=== PATIENT | female | born 1955 | race African-American/Black ===

== ENCOUNTER 2017-09-22 20:37 | Emergency (ER) | payer OTHER ==
--- NOTE | 2017-09-22 21:17 | PDOC ---
Rapid Medical Evaluation Chief Complaint: Cold Symptoms Time Seen by Provider: 09/22/17 21:09 Medical Evaluation: Allergies Allergy/AdvReac Type Severity Reaction Status Date / Time No Known Drug Allergies Allergy Verified 04/16/15 07:58 09/22/17 21:10 have performed a brief in-person evaluation of this patient. The patient presents with a chief complaint of: + cough , fevers, chills, cough non productive.started yesterday . diagnosed with Influenza this week Pertinent physical exam findings: ill apperaing, glassy eyed, congested. Tight insp BS.. I have ordered the following: Tylenol 975mg PO given , Duoneb Treatment The patient will proceed to the ED for further evaluation. 09/22/17 21:17 Discharge Disposition - Referrals Referrals: Kisha Rahman [Primary Care Provider] - - Patient Instructions - Post Discharge Activity
[2017-09-22] MEDS ORDERED: ALBUTEROL SO4 2.5/IPRATROPIUM 0.5 INH SOL 3 ML VIAL.NEB. NEB ONE ×3 (21:27→22:34)
[2017-09-22] MEDS ORDERED: ACETAMINOPHEN 500 MG TABLET (FP) PO ONE (21:28)
[2017-09-22 21:30] VITALS: BP 151/98; PULSE 84; TEMP 99.9; BMI 34.5
--- NOTE | 2017-09-22 22:41 | PDOC ---
History of Present Illness - General Chief Complaint: Cold Symptoms Stated Complaint: R/O FLU Time Seen by Provider: 09/22/17 21:09 History Source: Patient Exam Limitations: No Limitations Past History - Past Medical History Allergies/Adverse Reactions: Allergies Allergy/AdvReac Type Severity Reaction Status Date / Time No Known Drug Allergies Allergy Verified 09/22/17 21:11 Home Medications: Ambulatory Orders Aspirin [ASA -] 81 mg PO DAILY 04/13/15 Tramadol HCl [Ultram] 50 mg PO Q6H PRN 04/13/15 Losartan/Hydrochlorothiazide [Losartan-Hctz 50-12.5 mg Tab] 1 each PO DAILY Albuterol Sulfate Inhaler - [Ventolin HFA Inhaler -] 1 - 2 inh PO Q4H #1 inhaler 09/22/17 Ibuprofen 800 mg PO TID #30 tablet 09/22/17 Oseltamivir Phosphate [Tamiflu] 75 mg PO BID #10 capsule 09/22/17 Anemia: No Asthma: No Cancer: No Cardiac Disorders: No CVA: No COPD: No CHF: No Dementia: No Diabetes: No GI Disorders: No Disorders: No HTN: Yes Hypercholesterolemia: No Liver Disease: No Seizures: No Thyroid Disease: No - Surgical History Abdominal Surgery: No Appendectomy: No Cardiac Surgery: No (01/2015 CARD CATH - NEGATIVE) Cholecystectomy: No Lung Surgery: No Neurologic Surgery: No Orthopedic Surgery: Yes (R TOTAL KNEE REPLACEMENT 01/2015) - Suicide/Smoking/Psychosocial Hx Smoking Status: No Smoking History: Never smoked Have you smoked in the past 12 months: No Number of Cigarettes Smoked Daily: 0 Hx Alcohol Use: No Drug/Substance Use Hx: No Substance Use Type: Alcohol Hx Substance Use Treatment: No *Physical Exam - Vital Signs Last Vital Signs Temp Pulse Resp BP Pulse Ox 99.9 F H 84 20 151/98 97 09/22/17 21:11 09/22/17 21:11 09/22/17 21:11 09/22/17 21:11 09/22/17 21:11 ED Treatment Course - Medications Given in the ED: ED Medications Discontinued Medications Generic Name Dose Route Start Last Admin Trade Name Freq PRN Reason Stop Dose Admin Acetaminophen 1,000 mg 09/22/17 21:28 09/22/17 21:29 Tylenol - PO 09/22/17 21:29 1,000 mg ONCE ONE Administration Albuterol/Ipratropium 1 amp 09/22/17 21:27 09/22/17 21:29 Duoneb - NEB 09/22/17 21:28 1 amp ONCE ONE Administration *DC/Admit/Observation/Transfer Diagnosis at time of Disposition: Influenza - Discharge Dispostion Disposition: HOME Condition at time of disposition: Fair Admit: No - Prescriptions Prescriptions: Albuterol Sulfate Inhaler - [Ventolin HFA Inhaler -] 1 - 2 inh PO Q4H #1 inhaler Ibuprofen 800 mg PO TID #30 tablet Oseltamivir Phosphate [Tamiflu] 75 mg PO BID #10 capsule - Referrals Referrals: Kisha Rahman [Primary Care Provider] - - Patient Instructions Printed Discharge Instructions: DI for Influenza -- Adult Additional Instructions: You have the flu. Please take tamiflu twice a day for 5 days to help with your symptoms. The tamiflu will help to reduce symptoms by one day. Please take Motrin 800mg three times a day to help with fevers and body aches. You may use the albuterol inhaler every 4 hours to help with your breathing. Use Corticin HBP for cough syrup. This is found over the counter. Drink plenty of fluids and get plenty of rest. Follow up with your primary care doctor next week. Return to the ED if you have worsening pain, shortness of breath, difficulty breathing or any changes in your symptoms. - Post Discharge Activity Forms/Work/School Notes: Back to Work
== END 2017-09-22 23:02 | disposition home or self-care (01) ==
LOC: JER 20:37 → JERFT 20:37
DX: J11.1 Influenza due to unidentified influenza virus with other respiratory manifestations (principal)
CPT/HCPCS: 99281-25

== ENCOUNTER 2018-05-27 17:15 | Emergency (ER) | payer OTHER ==
[2018-05-27 17:34] VITALS: BP 146/99; PULSE 65; TEMP 98; BMI 38.7
[2018-05-27] MEDS ORDERED: KETOROLAC TROMETHAMINE 60 MG/2 ML VIAL IM ONE (17:56)
[2018-05-27] MEDS ORDERED: KETOROLAC TROMETHAMINE 60 MG/2 ML VIAL ONE (17:59)
--- NOTE | 2018-05-27 18:06 | PDOC ---
History of Present Illness - General Chief Complaint: Pain Stated Complaint: HIP AND LEG PAIN Time Seen by Provider: 05/27/18 17:42 History Source: Patient Exam Limitations: No Limitations - History of Present Illness Initial Comments: 05/27/18 18:01 63 yr female with c/o low back pain radiates to her left buttock and down her leg. Pt has had low back pain for the past 3-4 days today worse and down leg. 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 neg bowel or bladder dysfunction. Past History - Past Medical History Allergies/Adverse Reactions: Allergies Allergy/AdvReac Type Severity Reaction Status Date / Time No Known Drug Allergies Allergy Verified 05/27/18 17:34 Home Medications: Ambulatory Orders Losartan/Hydrochlorothiazide [Losartan-Hctz 50-12.5 mg Tab] 1 each PO DAILY Albuterol Sulfate Inhaler - [Ventolin HFA Inhaler -] 1 - 2 inh PO Q4H #1 inhaler 09/22/17 Ibuprofen 800 mg PO TID #30 tablet 09/22/17 Cyclobenzaprine HCl [Flexeril -] 10 mg PO TID #21 tablet 05/27/18 Methylprednisolone [Medrol Dose Abiel] 4 mg PO ASDIR #21 tablet 05/27/18 Anemia: No Asthma: No Cancer: No Cardiac Disorders: No CVA: No COPD: No CHF: No Dementia: No Diabetes: No GI Disorders: No Disorders: No HTN: Yes Hypercholesterolemia: No Liver Disease: No Seizures: No Thyroid Disease: No - Surgical History Abdominal Surgery: No Appendectomy: No Cardiac Surgery: No (01/2015 CARD CATH - NEGATIVE) Cholecystectomy: No Lung Surgery: No Neurologic Surgery: No Orthopedic Surgery: Yes (R TOTAL KNEE REPLACEMENT 01/2015) - Suicide/Smoking/Psychosocial Hx Smoking Status: No Smoking History: Never smoked Have you smoked in the past 12 months: No Number of Cigarettes Smoked Daily: 0 Hx Alcohol Use: No Drug/Substance Use Hx: No Substance Use Type: Alcohol Hx Substance Use Treatment: No Review of Systems - Review of Systems Able to Perform ROS?: Yes Is the patient limited Martiniquais proficient: No Musculoskeletal: Yes: Symptoms Reported *Physical Exam - Vital Signs Last Vital Signs Temp Pulse Resp BP Pulse Ox 98 F 65 18 146/99 99 05/27/18 17:29 05/27/18 17:29 05/27/18 17:29 05/27/18 17:29 05/27/18 17:29 - Physical Exam General Appearance: Yes: Nourished, Appropriately Dressed, Obese HEENT: positive: EOMI, BABAR Neck: positive: Supple. negative: Tender Respiratory/Chest: positive: Lungs Clear, Normal Breath Sounds Cardiovascular: positive: Regular Rhythm, Regular Rate Musculoskeletal: positive: Normal Inspection, Other (lumbar spine soft tissue paraspinal ttp ). negative: Vertebral Tenderness Extremity: positive: Normal Capillary Refill, Normal Inspection, Other (pos SLR left leg at 30 degrees) Medical Decision Making - Medical Decision Making 05/27/18 18:06 cc: low back pain with sciatica neg saddle anesthesia neg bowel or bladder dysfunction will give toradol now dc with medrol dose pack , flexeril pt has been taking NSAIDS at home with minimal relief pt ambulating with limp *DC/Admit/Observation/Transfer Diagnosis at time of Disposition: Sciatica of left side - Discharge Dispostion Disposition: HOME Condition at time of disposition: Good - Prescriptions Prescriptions: Cyclobenzaprine HCl [Flexeril -] 10 mg PO TID #21 tablet Methylprednisolone [Medrol Dose Abiel] 4 mg PO ASDIR #21 tablet - Referrals Referrals: Kisha Rahman [Primary Care Provider] - Noé Sue MD [Staff Physician] - - Patient Instructions Additional Instructions: take the flexeril for muscle spasm as directed take the medrol dose pack as directed ice to low back every 4hrs for 20 minutes then apply a heating pad to the lower back avoid heavy lifting or bending follow with the neurosurgeon for your back pain or your primary care doctor call tomorrow to set up appointment return to ER for any worsening symptoms - Post Discharge Activity Forms/Work/School Notes: Back to Work
== END 2018-05-27 18:48 | disposition home or self-care (01) ==
LOC: JERFT 17:15
PROC: 3E0233Z Introduction of Anti-inflammatory into Muscle, Percutaneous Approach (ICD-10-PCS; principal; 2018-05-27)
DX: M54.42 Lumbago with sciatica, left side (principal); Z98.61 Coronary angioplasty status
CPT/HCPCS: 99281-25

== ENCOUNTER 2018-06-02 21:39 | Emergency (ER) | payer OTHER ==
[2018-06-02 21:46] VITALS: BP 153/69; PULSE 62; TEMP 97.9; BMI 38.7
[2018-06-02] MEDS ORDERED: ACETAMINOPHEN 500 MG TABLET (FP) PO ONE (22:12)
[2018-06-02] MEDS ORDERED: ACETAMINOPHEN 500 MG TABLET (FP) ONE (22:13)
--- NOTE | 2018-06-02 22:13 | PDOC ---
History of Present Illness - General Chief Complaint: Pain, Acute Stated Complaint: HIP AND ANKLE PAIN Time Seen by Provider: 06/02/18 22:04 - History of Present Illness Initial Comments: 63-year-old female with a past medical history significant for hypertension. She was seen last week in the emergency room given a prescription for Medrol Dosepak, ibuprofen, and Flexeril. She's still continues to have radicular symptoms down the left leg. No loss of bowel bladder function or saddle paresthesia. No other associated symptoms. 06/02/18 22:09 Past History - Past Medical History Allergies/Adverse Reactions: Allergies Allergy/AdvReac Type Severity Reaction Status Date / Time No Known Drug Allergies Allergy Verified 06/02/18 21:46 Home Medications: Ambulatory Orders Losartan/Hydrochlorothiazide [Losartan-Hctz 50-12.5 mg Tab] 1 each PO DAILY Albuterol Sulfate Inhaler - [Ventolin HFA Inhaler -] 1 - 2 inh PO Q4H #1 inhaler 09/22/17 Ibuprofen 800 mg PO TID #30 tablet 09/22/17 Cyclobenzaprine HCl [Flexeril -] 10 mg PO TID #21 tablet 05/27/18 Cyclobenzaprine HCl [Flexeril -] 10 mg PO TID PRN #21 tablet 05/27/18 Methylprednisolone [Medrol Dose Abiel] 4 mg PO ASDIR #21 tablet 05/27/18 Methylprednisolone [Medrol Dose Abiel] 4 mg PO ASDIR #21 tablet 05/27/18 Anemia: No Asthma: No Cancer: No Cardiac Disorders: No CVA: No COPD: No CHF: No Dementia: No Diabetes: No GI Disorders: No Disorders: No HTN: Yes Hypercholesterolemia: No Liver Disease: No Seizures: No Thyroid Disease: No - Surgical History Abdominal Surgery: No Appendectomy: No Cardiac Surgery: No (01/2015 CARD CATH - NEGATIVE) Cholecystectomy: No Lung Surgery: No Neurologic Surgery: No Orthopedic Surgery: Yes (R TOTAL KNEE REPLACEMENT 01/2015) - Suicide/Smoking/Psychosocial Hx Smoking Status: No Smoking History: Never smoked Have you smoked in the past 12 months: No Number of Cigarettes Smoked Daily: 0 Hx Alcohol Use: No Drug/Substance Use Hx: No Substance Use Type: Alcohol Hx Substance Use Treatment: No Review of Systems - Review of Systems Musculoskeletal: Yes: See HPI, Back Pain All Other Systems: Reviewed and Negative *Physical Exam - Vital Signs Last Vital Signs Temp Pulse Resp BP Pulse Ox 97.9 F 62 18 153/69 98 06/02/18 21:43 06/02/18 21:43 06/02/18 21:43 06/02/18 21:43 06/02/18 21:43 - Physical Exam Comments: Lumbar spine skin color and temperature are normal. Range of motion is slightly decreased. There is moderate paralumbar musculature spasm greater on the left in the right with associated tenderness. 5 out of 5 strength in bilateral lower extremities thighs and calves are soft and nontender straight leg raise test is negative on the right positive on the left. She's neurovascular intact. 06/02/18 22:09 Medical Decision Making - Medical Decision Making 63-year-old female with hypertension on angiotensin receptor beni, already on a Medrol Dosepak in addition to a prescription strength ibuprofen. As well as Flexeril. She does discontinue the Flexeril she felt it did not help her. I have advised her to continue the Flexeril and just take Tylenol for pain. Ibuprofen will increase her pressure and put strain on her kidneys. She will finished a Medrol Dosepak as directed. I will refer her to spine surgery 06/02/18 22:10 *DC/Admit/Observation/Transfer Diagnosis at time of Disposition: Lumbar radiculopathy - Discharge Dispostion Disposition: HOME Condition at time of disposition: Stable Decision to Admit order: No - Referrals Referrals: Kisha Rahman [Primary Care Provider] - Charanjit Dunbar MD [Staff Physician] - - Patient Instructions Printed Discharge Instructions: Lumbar Radiculopathy, DI for Lumbar Radiculopathy Additional Instructions: Return to the emergency room should symptoms worsen or go unresolved. Please discontinue the use of the ibuprofen. Take Tylenol for pain as directed and continue the Flexeril. The muscle relaxants will help alleviate your pain. Follow-up with spine surgery in 1-2 days for further evaluation and treatment options. - Post Discharge Activity
== END 2018-06-02 22:15 | disposition home or self-care (01) ==
LOC: JER 21:39 → JERFT 21:39
DX: M54.16 Radiculopathy, lumbar region (principal); I25.10 Atherosclerotic heart disease of native coronary artery without angina pectoris; I10 Essential (primary) hypertension; Z98.61 Coronary angioplasty status; Z96.651 Presence of right artificial knee joint
CPT/HCPCS: 99281-25

== ENCOUNTER 2018-10-29 20:45 | Observation (INO) | payer OTHER ==
[2018-10-29 21:16] VITALS: BMI 39.0
--- NOTE | 2018-10-29 21:18 | PDOC ---
Rapid Medical Evaluation Chief Complaint: Pain Time Seen by Provider: 10/29/18 21:14 Medical Evaluation: Allergies Allergy/AdvReac Type Severity Reaction Status Date / Time No Known Drug Allergies Allergy Verified 10/29/18 21:09 10/29/18 21:14 I have performed a brief in-person evaluation of this patient. The patient presents with a chief complaint of: chest pain Pertinent physical exam findings: Lungs CTAB. RRR. o m/r/g. I have ordered the following: cardiac w/u The patient will proceed to the ED for further evaluation. Discharge Disposition - Diagnosis Chest pain - Referrals - Patient Instructions - Post Discharge Activity
[2018-10-29 21:50] LABS: BASO % 0.8 % (0-2.0); EOS % 2.9 % (0-4.5); HEMATOCRIT 39.5 % (32.4-45.2); HEMOGLOBIN 13.7 GM/dL (10.7-15.3); LYMPH % 35.5 % (8-40); MCH 33.2 pg (25.7-33.7); MCHC 34.6 g/dl (32.0-36.0); NEUT % 51.8 % (42.8-82.8); PLATELET COUNT 222 K/MM3 (134-434); RBC 4.12 M/mm3 (3.60-5.2); RDW 13.1 % (11.6-15.6); WHITE BLOOD COUNT 5.2 K/mm3 (4.0-10.0)
--- NOTE | 2018-10-29 21:53 | PDOC ---
*Physical Exam - Vital Signs Last Vital Signs Temp Pulse Resp BP Pulse Ox 98.3 F 63 18 134/77 99 10/29/18 21:10 10/29/18 21:10 10/29/18 21:10 10/29/18 21:10 10/29/18 21:10 ED Treatment Course - LABORATORY CBC & Chemistry Diagram: 10/29/18 21:33 10/29/18 21:41 Medical Decision Making - Medical Decision Making 10/29/18 21:53 Patient seen by the advanced practice provider under my direct supervision. Ancillary testing reviewed as necessary. I agree with plan as outlined by the advanced practice provider. *DC/Admit/Observation/Transfer Diagnosis at time of Disposition: Chest pain - Referrals - Patient Instructions - Post Discharge Activity
[2018-10-29 21:58] LABS: URINE APPEARANCE SLCLOUDY; URINE BILIRUBIN NEGATIVE (<2.0 mg/dL); URINE COLOR YELLOW; URINE GLUCOSE (UA) NEGATIVE (NEGATIVE); URINE KETONE NEGATIVE (NEGATIVE); URINE LEUK ESTERASE TRACE (NEGATIVE); URINE NITRITE NEGATIVE (NEGATIVE); URINE PROTEIN NEGATIVE (NEGATIVE); URINE UROBILINOGEN NEGATIVE mg/dL (0.2-1.0)
[2018-10-29 22:00] LABS: EPI CELLS RARE /HPF (FEW); URINE HYALINE CAST 1 /lpf; URINE MUCUS RARE
[2018-10-29 22:02] LABS: INR 0.98 (0.83-1.09); PROTHROMBIN TIME (PATIENT) 11.6 SEC (9.7-13.0)
[2018-10-29 22:31] LABS: ALBUMIN 3.8 g/dl (3.4-5.0); ALK PHOS 86 U/L (45-117); ANION GAP 7 MMOL/L (8-16); BILIRUBIN,TOTAL 0.3 mg/dL (0.2-1); BLOOD UREA NITROGEN 14 mg/dL (7-18); CALCIUM 8.9 mg/dL (8.5-10.1); CHLORIDE 105 mmol/L (98-107); CO2 27 mmol/L (21-32); CREATININE 0.9 mg/dL (0.55-1.3); GLUCOSE,RANDOM 87 mg/dL (74-106); MAGNESIUM 2.5 mg/dL (1.8-2.4); POTASSIUM 4.5 mmol/L (3.5-5.1); SGOT/AST 23 U/L (15-37); SGPT/ALT 23 U/L (13-61); SODIUM 140 mmol/L (136-145); TOT PROT 7.6 g/dl (6.4-8.2)
--- NOTE | 2018-10-29 22:49 | PDOC ---
History of Present Illness - General Chief Complaint: Pain Stated Complaint: CHEST PAIN Time Seen by Provider: 10/29/18 21:14 History Source: Patient Exam Limitations: No Limitations Past History - Past Medical History Allergies/Adverse Reactions: Allergies Allergy/AdvReac Type Severity Reaction Status Date / Time No Known Drug Allergies Allergy Verified 10/29/18 21:09 Home Medications: Ambulatory Orders Losartan/Hydrochlorothiazide [Losartan-Hctz 50-12.5 mg Tab] 1 each PO DAILY Albuterol Sulfate Inhaler - [Ventolin HFA Inhaler -] 1 - 2 inh PO Q4H #1 inhaler 09/22/17 Ibuprofen 800 mg PO TID #30 tablet 09/22/17 Cyclobenzaprine HCl [Flexeril -] 10 mg PO TID #21 tablet 05/27/18 Cyclobenzaprine HCl [Flexeril -] 10 mg PO TID PRN #21 tablet 05/27/18 Methylprednisolone [Medrol Dose Abiel] 4 mg PO ASDIR #21 tablet 05/27/18 Methylprednisolone [Medrol Dose Abiel] 4 mg PO ASDIR #21 tablet 05/27/18 Anemia: No Asthma: No Cancer: No Cardiac Disorders: No CVA: No COPD: No CHF: No Dementia: No Diabetes: No GI Disorders: No Disorders: No HTN: Yes (Borderline) Hypercholesterolemia: No Liver Disease: No Seizures: No Thyroid Disease: No - Surgical History Abdominal Surgery: No Appendectomy: No Cardiac Surgery: No (01/2015 CARD CATH - NEGATIVE) Cholecystectomy: No Lung Surgery: No Neurologic Surgery: No Orthopedic Surgery: Yes (R TOTAL KNEE REPLACEMENT 01/2015) - Suicide/Smoking/Psychosocial Hx Smoking Status: No Smoking History: Never smoked Have you smoked in the past 12 months: No Number of Cigarettes Smoked Daily: 0 Information on smoking cessation initiated: No Hx Alcohol Use: No Drug/Substance Use Hx: No Substance Use Type: Alcohol Hx Substance Use Treatment: No Cardiac Specific PMH - Complaint Specific PMHX Pacemaker: No *Physical Exam - Vital Signs Last Vital Signs Temp Pulse Resp BP Pulse Ox 98.3 F 63 18 134/77 99 10/29/18 21:10 10/29/18 21:10 10/29/18 21:10 10/29/18 21:10 10/29/18 21:10 - Physical Exam General Appearance: No: Apparent Distress Respiratory/Chest: positive: Lungs Clear, Normal Breath Sounds. negative: Chest Tender, Respiratory Distress Cardiovascular: positive: Regular Rhythm, Regular Rate, S1, S2. negative: Murmur Gastrointestinal/Abdominal: positive: Normal Bowel Sounds, Soft. negative: Tender, Distended, Guarding, Rebound Musculoskeletal: negative: CVA Tenderness, Muscle Spasm, Vertebral Tenderness Extremity: positive: Normal Inspection. negative: Pedal Edema, Calf Tenderness Integumentary: positive: Normal Color Neurologic: positive: Alert, Normal Mood/Affect Heart Score/ECG Review - History History: Slightly suspicious - Electrocardiogram EKG: Non specific repolarization disturbance - Age Age: 45-65 - Risk Factors Risk Factors Heart Score: Yes Hx Hypertension, Yes Hx Obesity Based on the list above the patient has:: 1-2 risk factors - Troponin Troponin: </= normal limit - Score Heart Score - Total: 3 Moderate Sedation - Procedure Monitoring Vital Signs: Procedure Monitoring Vital Signs Temperature 98.3 F 10/29/18 21:10 Pulse Rate 63 10/29/18 21:10 Respiratory Rate 18 10/29/18 21:10 Blood Pressure 134/77 10/29/18 21:10 O2 Sat by Pulse Oximetry (%) 99 10/29/18 21:10 ED Treatment Course - LABORATORY CBC & Chemistry Diagram: 10/29/18 21:33 10/29/18 21:41 - ADDITIONAL ORDERS Additional order review: Laboratory Results 10/29/18 10/29/18 10/29/18 21:41 21:40 21:33 PT with INR 11.60 INR 0.98 Sodium 140 Potassium 4.5 Chloride 105 Carbon Dioxide 27 Anion Gap 7 L BUN 14 Creatinine 0.9 Creat Clearance w eGFR > 60 Random Glucose 87 Calcium 8.9 Magnesium 2.5 H Total Bilirubin 0.3 AST 23 ALT 23 Alkaline Phosphatase 86 Creatine Kinase 206 H Creatine Kinase Index 0.5 CK-MB (CK-2) 1.2 Troponin I < 0.02 Total Protein 7.6 Albumin 3.8 Urine Color Yellow Urine Appearance Slcloudy Urine pH 5.0 Ur Specific [place] 1.024 Urine Protein Negative Urine Glucose (UA) Negative Urine Ketones Negative Urine Blood Negative Urine Nitrite Negative Urine Bilirubin Negative Urine Urobilinogen Negative Ur Leukocyte Esterase Trace Urine WBC (Auto) 1 Urine RBC (Auto) 1 Ur Epithelial Cells Rare Hyaline Casts 1 Urine Mucus Rare 10/29/18 21:33 RBC 4.12 MCV 96.0 MCHC 34.6 RDW 13.1 D MPV 9.0 Neutrophils % 51.8 Lymphocytes % 35.5 Monocytes % 9.0 Eosinophils % 2.9 Basophils % 0.8 Medical Decision Making - Medical Decision Making 63 y/o F with hx of HTN presents with sharp, nonradiating substernal CP that started today at 8 PM while she was sitting in car. Pain lasted a few minutes and then resolved. Denies having this type of pain before. Also mentions having nonradiating LBP x 2 days. 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 Mentions increased urinary frequency x 1 week. Denies fever, cough, sob, palpitations, dizziness, abd pain, n/v, dysuria , hematuria. Denies smoking or drug use. Believes her mother may have had CAD with stent placement in her 70s. Plan: r/o ACS Initial EKG shows NSR at 62 bpm with nonspecific T wave flattening (seen in prior EKG as well) Labs sent and pending CXR pending 10/29/18 22:46 CXR wet read neg Trop neg UA neg Patient heart score of 3 Discussed case w/ attending - recommends ED obs admission to r/o ACS 10/30/18 00:13 *DC/Admit/Observation/Transfer Diagnosis at time of Disposition: Chest pain Qualifiers: Chest pain type: other chest pain Qualified Code(s): R07.89 - Other chest pain ; R07.8 - Other chest pain - Discharge Dispostion Condition at time of disposition: Stable Decision to Admit order: Yes - Referrals Referrals: Kisha Rahman [Primary Care Provider] - - Patient Instructions - Post Discharge Activity
[2018-10-30] MEDS ORDERED: ASPIRIN 325 MG TABLET PO ONE (00:14)
--- NOTE | 2018-10-30 00:57 | HP ---
CHIEF COMPLAINT: chest pain PCP: Dr. Kisha Rahman HISTORY OF PRESENT ILLNESS: Patient is a 63 yo obese, F, with a PMHx of HTN, presenting today with sharp, 9/ 10, non-radiating, substernal chest pain that lasted a few minutes. She said she was driving in her car when the pain suddenly occurred. She said this never happened to her in the past. When asked about SOB, she said she could walk 3 blocks before she gets tired and SOB, which she relates to her obesity and weight gain. She denies other symptoms. She was here in 2011 and had a stress test and an echo which were unremarkable. She does not follow a director toxicology at this time. She also mentions having a cold about a month ago which has resolved. She denies SOB, nausea, vomiting, dizziness, LOC, urinary symptoms, chills, fevers, cough. ER course was notable for: (1) EKG NSR, no changes from previous. (2) ASA 325 Recent Travel: denies PAST MEDICAL HISTORY: HTN Social History: Smoking: denies Alcohol: occasionally Drugs: denies Family History: Allergies No Known Drug Allergies Allergy (Verified 10/29/18 21:09) HOME MEDICATIONS: Home Medications Medication Instructions Recorded Losartan/Hydrochlorothiazide 1 each PO DAILY 04/16/15 [Losartan-Hctz 50-12.5 mg Tab] Albuterol Sulfate Inhaler - 1 - 2 inh PO Q4H #1 inhaler 09/22/17 [Ventolin HFA Inhaler -] Ibuprofen 800 mg PO TID #30 tablet 09/22/17 Cyclobenzaprine HCl [Flexeril -] 10 mg PO TID #21 tablet 05/27/18 Cyclobenzaprine HCl [Flexeril -] 10 mg PO TID PRN #21 tablet 05/27/18 Methylprednisolone [Medrol Dose 4 mg PO ASDIR #21 tablet 05/27/18 Abiel] Methylprednisolone [Medrol Dose 4 mg PO ASDIR #21 tablet 05/27/18 Abiel] REVIEW OF SYSTEMS CONSTITUTIONAL: Absent: fever, chills, diaphoresis, generalized weakness, malaise, loss of appetite, weight change HEENT: Absent: rhinorrhea, nasal congestion, throat pain, throat swelling, difficulty swallowing, mouth swelling, ear pain, eye pain, visual changes CARDIOVASCULAR: Absent: chest pain, syncope, palpitations, irregular heart rate, lightheadedness , peripheral edema RESPIRATORY: Absent: cough, shortness of breath, dyspnea with exertion, orthopnea, wheezing, stridor, hemoptysis GASTROINTESTINAL: Absent: abdominal pain, abdominal distension, nausea, vomiting, diarrhea, constipation, melena, hematochezia GENITOURINARY: Absent: dysuria, frequency, urgency, hesitancy, hematuria, flank pain, genital pain MUSCULOSKELETAL: back pain from sciatica Absent: myalgia, arthralgia, joint swelling, neck pain SKIN: Absent: rash, itching, pallor HEMATOLOGIC/IMMUNOLOGIC: Absent: easy bleeding, easy bruising, lymphadenopathy, frequent infections ENDOCRINE: Absent: unexplained weight gain, unexplained weight loss, heat intolerance, cold intolerance NEUROLOGIC: Absent: headache, focal weakness or paresthesias, dizziness, unsteady gait, seizure, mental status changes, bladder or bowel incontinence PSYCHIATRIC: Absent: anxiety, depression, suicidal or homicidal ideation, hallucinations. PHYSICAL EXAMINATION Vital Signs - 24 hr 10/29/18 21:10 Temperature 98.3 F Pulse Rate 63 Respiratory 18 Rate Blood Pressure 134/77 O2 Sat by Pulse 99 Oximetry (%) GENERAL: obese, Awake, alert, and fully oriented, in no acute distress. HEAD: Normal with no signs of trauma. EYES: Pupils equal, round and reactive to light, extraocular movements intact, sclera anicteric EARS, NOSE, THROAT: oropharynx clear without exudates. Moist mucous membranes. NECK: Normal range of motion, supple without lymphadenopathy, JVD, or masses. LUNGS: Breath sounds equal, clear to auscultation bilaterally. No wheezes, and no crackles. No accessory muscle use. HEART: Regular rate and rhythm, normal S1 and S2 without murmur, rub or gallop. ABDOMEN: Soft, nontender, not distended, normoactive bowel sounds, no guarding, no rebound, no masses. MUSCULOSKELETAL: Normal range of motion at all joints. No bony deformities or tenderness. No CVA tenderness. LOWER EXTREMITIES: 2+ pulses, warm, well-perfused. No peripheral edema. NEUROLOGICAL: Cranial nerves II-XII intact. Normal speech. Normal gait. Laboratory Results - last 24 hr 10/29/18 10/29/18 10/29/18 21:33 21:33 21:40 WBC 5.2 RBC 4.12 Hgb 13.7 Hct 39.5 MCV 96.0 MCH 33.2 D MCHC 34.6 RDW 13.1 D Plt Count 222 MPV 9.0 Absolute Neuts (auto) 2.7 Neutrophils % 51.8 Lymphocytes % 35.5 Monocytes % 9.0 Eosinophils % 2.9 Basophils % 0.8 Nucleated RBC % 0 PT with INR 11.60 INR 0.98 Sodium Potassium Chloride Carbon Dioxide Anion Gap BUN Creatinine Creat Clearance w eGFR Random Glucose Calcium Magnesium Total Bilirubin AST ALT Alkaline Phosphatase Creatine Kinase Creatine Kinase Index CK-MB (CK-2) Troponin I Total Protein Albumin Urine Color Yellow Urine Appearance Slcloudy Urine pH 5.0 Ur Specific [place] 1.024 Urine Protein Negative Urine Glucose (UA) Negative Urine Ketones Negative Urine Blood Negative Urine Nitrite Negative Urine Bilirubin Negative Urine Urobilinogen Negative Ur Leukocyte Esterase Trace Urine WBC (Auto) 1 Urine RBC (Auto) 1 Ur Epithelial Cells Rare Hyaline Casts 1 Urine Mucus Rare 10/29/18 21:41 WBC RBC Hgb Hct MCV MCH MCHC RDW Plt Count MPV Absolute Neuts (auto) Neutrophils % Lymphocytes % Monocytes % Eosinophils % Basophils % Nucleated RBC % PT with INR INR Sodium 140 Potassium 4.5 Chloride 105 Carbon Dioxide 27 Anion Gap 7 L BUN 14 Creatinine 0.9 Creat Clearance w eGFR > 60 Random Glucose 87 Calcium 8.9 Magnesium 2.5 H Total Bilirubin 0.3 AST 23 ALT 23 Alkaline Phosphatase 86 Creatine Kinase 206 H Creatine Kinase Index 0.5 CK-MB (CK-2) 1.2 Troponin I < 0.02 Total Protein 7.6 Albumin 3.8 Urine Color Urine Appearance Urine pH Ur Specific [place] Urine Protein Urine Glucose (UA) Urine Ketones Urine Blood Urine Nitrite Urine Bilirubin Urine Urobilinogen Ur Leukocyte Esterase Urine WBC (Auto) Urine RBC (Auto) Ur Epithelial Cells Hyaline Casts Urine Mucus ASSESSMENT/PLAN: 63 yo obese, F, with a PMHx of HTN, presenting today with sharp, 9/10, non- radiating, substernal chest pain #Atypical chest pain -r/o ACS -1st trop neg, FU repeat -325 ASA given in ED -echo in the am -tele monitoring -lipid panel -monitor vitals #HTN -cont. home Losartan 50mg daily #Morbid Obesity -Provide patient all the necessary assistance, counseling and positive reinforcement to facilitate weight loss -outpatient rn hospital #FEN -no iv fluids -wnl -sodium diet #DVT -eab -scds dispo: discharge in AM if results negative
[2018-10-30] MEDS ORDERED: ASPIRIN 81 MG CHEWABLE TABLETS ONE (02:15)
--- NOTE | 2018-10-30 03:14 | PN ---
Teaching Attending Note Name of Resident: Hue Shaffer ATTENDING PHYSICIAN STATEMENT I saw and evaluated the patient. I reviewed the resident's note and discussed the case with the resident. I agree with the resident's findings and plan as documented. SUBJECTIVE: Patient is a 63 year old woman with PMH of HTN, asthma, right total knee replacement and ?chronic back pain presenting today with sharp, 9/10, non- radiating, substernal chest pain that lasted a few minutes. She said she was driving in her car when the pain suddenly occurred. She said this never happened to her in the past. She gets tired with NIETO and SOB, which she relates to her obesity and weight gain. Has had lower back pain for the past two days - denies low back trauma or fall. She was here in 2011 and had a stress test and an ECHO which were negative. Also had a negative cardiac cath in January 2015? . She does not follow a software security consultant at this time. She also mentions having a cold about a month ago which has resolved. She denies nausea, vomiting, dizziness, LOC, urinary symptoms, chills, fevers, cough or dysuria. She has not had chest pain since being in the ER, but her back pain persists. OBJECTIVE: Alert and obese Vital Signs Period Temp Pulse Resp BP Sys/Brannon Pulse Ox Last 24 Hr 98.3 F 63 18 134/77 99 HEENT: No Jaundice, eye redness or discharge, PERRLA, EOMI. Normocephalic, atraumatic. External ears are normal and hearing is grossly intact. No nasal discharge. Neck: Supple, nontender. No palpable adenopathy or thyromegaly. No JVD Chest: Good effort. Clear to auscultation and percussion. Heart: Regular. No S3, rub or murmur Abdomen: Not distended, soft, nontender and no HSM. No rebound or guarding. Normal bowel sounds. Ext: Peripheral pulses intact. No leg edema. No vertebral tenderness. Skin: Warm and dry. No petechiae, rash or ecchymosis. Neuro: Alert. Oriented x3. CN 2-12 grossly intact. Sensation grossly intact in all four extremities and DTR are symmetric. Psych: Appropriate mood and affect. Good insight. Current Medications Generic Name Dose Route Start Last Admin Trade Name Freq PRN Reason Stop Dose Admin Losartan Potassium 50 mg 10/30/18 10:00 Cozaar - PO DAILY [facility] Home Medications Medication Instructions Recorded Losartan Potassium 50 mg PO DAILY 10/30/18 Abnormal Lab Results 10/29/18 21:41 Anion Gap 7 L Magnesium 2.5 H Creatine Kinase 206 H ASSESSMENT AND PLAN: 1. Chest pain - Pain is atypical for ACS but she does have risk factors for CAD. EKG is NSR with nonspecific T wave flattening, unchanged from her previous EKG. Initial troponin is negative. No acute abnormality on CXR. Will admit to telemetry to rule out ACS. Get ECHO, fasting lipids and TSH. Outpatient cardiology follow up. If backpain persists, would need further work up as outpatient with CT/MRI. 2. Obesity - The harmful health consequences of obesity were discussed. Will provide patient all the necessary assistance, counseling and positive reinforcement to facilitate weight loss. Consult digital service engineer. 3. Hypertension - Restart outpatient antihypertensive drugs and revise regimen to ensure smooth [id number] good BP control. Nonpharmacologic measures to control hypertension like weight loss, salt restriction and exercise discussed. 4. DVT prophylaxis - Lovenox 40 mg SQ q 24 hours. 5. Advance directives - Full code
[2018-10-30 09:32] LABS: HEMATOCRIT 39.4 % (32.4-45.2); HEMOGLOBIN 13.4 GM/dL (10.7-15.3); MCH 32.9 pg (25.7-33.7); MCHC 34.1 g/dl (32.0-36.0); MEAN CELL VOLUME 96.6 fl (80-96); MEAN PLT VOLUME 9.3 fl (7.5-11.1); PLATELET COUNT 230 K/MM3 (134-434); RBC 4.08 M/mm3 (3.60-5.2); WHITE BLOOD COUNT 5.7 K/mm3 (4.0-10.0)
[2018-10-30 09:59] LABS: ANION GAP 8 MMOL/L (8-16); BLOOD UREA NITROGEN 17 mg/dL (7-18); CALCIUM 8.7 mg/dL (8.5-10.1); CHLORIDE 106 mmol/L (98-107); CHOLESTEROL 197 mg/dL (50-200); CO2 26 mmol/L (21-32); GLUCOSE,RANDOM 126 mg/dL (74-106); HDL CHOLESTEROL 58 mg/dL (40-60); POTASSIUM 4.1 mmol/L (3.5-5.1); SODIUM 140 mmol/L (136-145); TRIGLYCERIDES 170 mg/dL (0-150)
[2018-10-30] MEDS ORDERED: LOSARTAN POTASSIUM 50 MG TABLET (FP) PO SCH (10:00)
--- NOTE | 2018-10-30 13:19 | PN ---
Physical Exam: SUBJECTIVE: Patient seen and examined at bedside. no acute events since admission. now cp free. denies fever, chills, cp, sob, n/v/d, urainry sxs. OBJECTIVE: Vital Signs Period Temp Pulse Resp BP Sys/Brannon Pulse Ox Last 24 Hr 97.8 F-98.3 F 63-67 16-18 103-134/76-80 98-99 GENERAL: obese, Awake, alert, and fully oriented, in no acute distress. HEAD: Normal with no signs of trauma. EYES: Pupils equal, round and reactive to light, extraocular movements intact, sclera anicteric EARS, NOSE, THROAT: oropharynx clear without exudates. Moist mucous membranes. NECK: Normal range of motion, supple without lymphadenopathy, JVD, or masses. LUNGS: Breath sounds equal, clear to auscultation bilaterally. No wheezes, and no crackles. No accessory muscle use. HEART: Regular rate and rhythm, normal S1 and S2 without murmur, rub or gallop. +TTP SHAKILA sternum? ABDOMEN: Soft, nontender, not distended, normoactive bowel sounds, no guarding, no rebound, no masses. MUSCULOSKELETAL: Normal range of motion at all joints. No bony deformities or tenderness. No CVA tenderness. LOWER EXTREMITIES: 2+ pulses, warm, well-perfused. No peripheral edema. NEUROLOGICAL: Cranial nerves II-XII intact. Normal speech. Normal gait. Laboratory Results - last 24 hr 10/29/18 10/29/18 10/29/18 21:33 21:33 21:40 WBC 5.2 RBC 4.12 Hgb 13.7 Hct 39.5 MCV 96.0 MCH 33.2 D MCHC 34.6 RDW 13.1 D Plt Count 222 MPV 9.0 Absolute Neuts (auto) 2.7 Neutrophils % 51.8 Lymphocytes % 35.5 Monocytes % 9.0 Eosinophils % 2.9 Basophils % 0.8 Nucleated RBC % 0 PT with INR 11.60 INR 0.98 Sodium Potassium Chloride Carbon Dioxide Anion Gap BUN Creatinine Creat Clearance w eGFR Random Glucose Hemoglobin A1c % Calcium Magnesium Total Bilirubin AST ALT Alkaline Phosphatase Creatine Kinase Creatine Kinase Index CK-MB (CK-2) Troponin I Total Protein Albumin Triglycerides Cholesterol Total LDL Cholesterol HDL Cholesterol Urine Color Yellow Urine Appearance Slcloudy Urine pH 5.0 Ur Specific [place] 1.024 Urine Protein Negative Urine Glucose (UA) Negative Urine Ketones Negative Urine Blood Negative Urine Nitrite Negative Urine Bilirubin Negative Urine Urobilinogen Negative Ur Leukocyte Esterase Trace Urine WBC (Auto) 1 Urine RBC (Auto) 1 Ur Epithelial Cells Rare Hyaline Casts 1 Urine Mucus Rare 10/29/18 10/30/18 10/30/18 21:41 08:08 08:08 WBC 5.7 RBC 4.08 Hgb 13.4 Hct 39.4 MCV 96.6 H MCH 32.9 MCHC 34.1 RDW 13.0 Plt Count 230 MPV 9.3 Absolute Neuts (auto) Neutrophils % Lymphocytes % Monocytes % Eosinophils % Basophils % Nucleated RBC % PT with INR INR Sodium 140 140 Potassium 4.5 4.1 Chloride 105 106 Carbon Dioxide 27 26 Anion Gap 7 L 8 BUN 14 17 Creatinine 0.9 1.0 Creat Clearance w eGFR > 60 56.37 Random Glucose 87 126 H Hemoglobin A1c % Calcium 8.9 8.7 Magnesium 2.5 H Total Bilirubin 0.3 AST 23 ALT 23 Alkaline Phosphatase 86 Creatine Kinase 206 H Creatine Kinase Index 0.5 CK-MB (CK-2) 1.2 Troponin I < 0.02 < 0.02 Total Protein 7.6 Albumin 3.8 Triglycerides 170 H Cholesterol 197 Total LDL Cholesterol 115 H HDL Cholesterol 58 Urine Color Urine Appearance Urine pH Ur Specific [place] Urine Protein Urine Glucose (UA) Urine Ketones Urine Blood Urine Nitrite Urine Bilirubin Urine Urobilinogen Ur Leukocyte Esterase Urine WBC (Auto) Urine RBC (Auto) Ur Epithelial Cells Hyaline Casts Urine Mucus 10/30/18 10/30/18 08:08 08:08 WBC RBC Hgb Hct MCV MCH MCHC RDW Plt Count MPV Absolute Neuts (auto) Neutrophils % Lymphocytes % Monocytes % Eosinophils % Basophils % Nucleated RBC % PT with INR INR Sodium Cancelled Potassium Cancelled Chloride Cancelled Carbon Dioxide Cancelled Anion Gap Cancelled BUN Cancelled Creatinine Cancelled Creat Clearance w eGFR Cancelled Random Glucose Cancelled Hemoglobin A1c % 5.4 Calcium Cancelled Magnesium Total Bilirubin AST ALT Alkaline Phosphatase Creatine Kinase Creatine Kinase Index CK-MB (CK-2) Troponin I Total Protein Albumin Triglycerides Cancelled Cholesterol Cancelled Total LDL Cholesterol Cancelled HDL Cholesterol Cancelled Urine Color Urine Appearance Urine pH Ur Specific [place] Urine Protein Urine Glucose (UA) Urine Ketones Urine Blood Urine Nitrite Urine Bilirubin Urine Urobilinogen Ur Leukocyte Esterase Urine WBC (Auto) Urine RBC (Auto) Ur Epithelial Cells Hyaline Casts Urine Mucus Active Medications Generic Name Dose Route Start Last Admin Trade Name Alec PRN Reason Stop Dose Admin Atorvastatin Calcium 20 mg 10/30/18 22:00 Lipitor - PO HS GODWIN Losartan Potassium 50 mg 10/30/18 10:00 Cozaar - PO DAILY [facility] ASSESSMENT/PLAN: 63 yo obese, F, with a PMHx of HTN, presenting today with sharp, 9/10, non- radiating, substernal chest pain #Atypical chest pain, r/o ACS - Now CP free. +reproducible? Stress test 2011 showed small mild inferolateral ischemia, small apical septal ischemia, EF 57% -CXR no acute pathology. EKG NSR, no changes from previous. trop neg x2 -325 ASA given in ED -f/u echo and stress test results -tele monitoring -lipid panel: trig 170, LDL 115, HDL 58 -will start Lipitor 20mg HS (ASCVD ~7.5%) -A1c 5.4 #HTN -cont. home Losartan 50mg daily #Morbid Obesity -Provide patient all the necessary assistance, counseling and positive reinforcement to facilitate weight loss -outpatient health lead #FEN -no iv fluids -wnl -sodium diet #DVT -eab -scds dispo: tele obs discharge vs cath pending echo and stress test Visit type - Emergency Visit Emergency Visit: Yes ED Registration Date: 10/30/18 Care time: The patient presented to the Emergency Department on the above date and was hospitalized for further evaluation of their emergent condition. - New Patient This patient is new to me today: Yes Date on this admission: 10/30/18 - Critical Care Critical Care patient: No
[2018-10-30 13:46] VITALS: BP 141/86; PULSE 70; TEMP 97.6
--- NOTE | 2018-10-30 13:47 | EKG ---
Test Reason : Blood Pressure : / mmHG Vent. Rate : 064 BPM Atrial Rate : 064 BPM P-R Int : 178 ms QRS Dur : 086 ms QT Int : 444 ms P-R-T Axes : 003 -15 000 degrees QTc Int : 458 ms NORMAL SINUS RHYTHM MODERATE VOLTAGE CRITERIA FOR LVH, MAY BE NORMAL VARIANT NONSPECIFIC T WAVE ABNORMALITY ABNORMAL ECG WHEN COMPARED WITH ECG OF 29-OCT-2018 21:15, NO SIGNIFICANT CHANGE WAS FOUND Confirmed by MD Lauri, Darinel ([id number]) on 10/30/2018 1:47:32 PM Referred By: Confirmed By:Darinel Carreon MD
--- NOTE | 2018-10-30 13:48 | EKG ---
Test Reason : Blood Pressure : / mmHG Vent. Rate : 062 BPM Atrial Rate : 062 BPM P-R Int : 174 ms QRS Dur : 078 ms QT Int : 442 ms P-R-T Axes : 035 -06 028 degrees QTc Int : 448 ms NORMAL SINUS RHYTHM MINIMAL VOLTAGE CRITERIA FOR LVH, MAY BE NORMAL VARIANT NONSPECIFIC ST AND T WAVE ABNORMALITY ABNORMAL ECG WHEN COMPARED WITH ECG OF 04-JUL-2016 14:21, NONSPECIFIC T WAVE ABNORMALITY HAS REPLACED INVERTED T WAVES IN INFERIOR LEADS Confirmed by MD Lauri, Darinel ([id number]) on 10/30/2018 1:47:52 PM Referred By: Confirmed By:Darinel Carreon MD
--- NOTE | 2018-10-30 15:22 | ECHO ---
Name: HO CARREONCAIT Exam:Adult Echocardiogram Study Date: 10/30/2018 09:25 AM Age: 63 yrs Reason For Study: CHEST PAIN Height: 71 in Weight: 285 lb BSA: 2.5 m2 MMode/2D Measurements & Calculations IVSd: 0.89 cm Ao root diam: 3.1 cm LVIDd: 5.2 cm LA dimension: 3.5 cm LVIDs: 3.5 cm LVPWd: 0.82 cm EDV(Teich): 130.6 ml LVOT diam: 2.4 cm ESV(Teich): 50.7 ml Doppler Measurements & Calculations MV E max pako: 64.7 cm/sec Med Peak E' Pako: 7.6 cm/sec MV A max pako: 47.9 cm/sec Med E/e': 8.5 MV E/A: 1.4 Lat Peak E' Pako: 10.8 cm/sec MV dec time: 0.24 sec Lat E/e': 6.0 Left Ventricle Normal LV size and function. Right Ventricle The right ventricle is normal in size and function. Atria Normal left and right atrial size and function. Mitral Valve The mitral valve leaflets appear normal. There is no evidence of stenosis, fluttering, or prolapse. Tricuspid Valve The tricuspid valve is normal. Aortic Valve The aortic valve is normal in structure and function. Pulmonic Valve The pulmonic valve is not well seen, but is grossly normal. Great Vessels The aortic root is normal size. Pericardium/Pleura There is no pericardial effusion. Interpretation Summary Normal LV size and function. The right ventricle is normal in size and function. Normal left and right atrial size and function. The mitral valve leaflets appear normal. There is no evidence of stenosis, fluttering, or prolapse. The tricuspid valve is normal. The aortic valve is normal in structure and function. The aortic root is normal size. There is no pericardial effusion. MD Darinel Carreon 10/30/2018 03:21 PM
--- NOTE | 2018-10-30 15:37 | PN ---
Teaching Attending Note Name of Resident: Baron Rowland ATTENDING PHYSICIAN STATEMENT I saw and evaluated the patient. I reviewed the resident's note and discussed the case with the resident. I agree with the resident's findings and plan as documented. SUBJECTIVE:asymptomatic. no repeat episodes of CP. only been having dyspnea as she noticed her weight to be increasing as she has not been exercising or dieting. denies CP, SOB, fever, chills, N/V/C/D OBJECTIVE: Last Vital Signs Temp Pulse Resp BP Pulse Ox 97.6 F 70 18 141/86 98 10/30/18 13:33 10/30/18 13:33 10/30/18 15:00 10/30/18 13:33 10/30/18 15:00 General NAD CV S1 S2 RRR no murmur/rub/gallop ASSESSMENT AND PLAN: 63yo F wtih PMH HTN and asthma presenting with CP assoc with SOB 1. R/O ACS- no events on monitor. no repeat episodes of CP. due to risk factors will perform stress test as +ischemia in 2011 and has not followed up with PMD. 2. Dyslipidemia- elevated LDL. start lipitor 3. Morbid obesity- BMI 39. counselled on lifestyle changes. exercise and diet 4. pending results of stress test can d/c home if negative
--- NOTE | 2018-10-30 16:58 | DS ---
Physical Exam: SUBJECTIVE: Patient seen and examined at bedside. no acute events since admission. now cp free. denies fever, chills, cp, sob, n/v/d, urainry sxs. OBJECTIVE: Vital Signs Period Temp Pulse Resp BP Sys/Brannon Pulse Ox Last 24 Hr 97.6 F-98.3 F 63-70 16-18 103-141/76-86 98-99 PHYSICAL EXAM GENERAL: obese, Awake, alert, and fully oriented, in no acute distress. HEAD: Normal with no signs of trauma. EYES: Pupils equal, round and reactive to light, extraocular movements intact, sclera anicteric EARS, NOSE, THROAT: oropharynx clear without exudates. Moist mucous membranes. NECK: Normal range of motion, supple without lymphadenopathy, JVD, or masses. LUNGS: Breath sounds equal, clear to auscultation bilaterally. No wheezes, and no crackles. No accessory muscle use. HEART: Regular rate and rhythm, normal S1 and S2 without murmur, rub or gallop. +TTP SHAKILA sternum? ABDOMEN: Soft, nontender, not distended, normoactive bowel sounds, no guarding, no rebound, no masses. MUSCULOSKELETAL: Normal range of motion at all joints. No bony deformities or tenderness. No CVA tenderness. LOWER EXTREMITIES: 2+ pulses, warm, well-perfused. No peripheral edema. NEUROLOGICAL: Cranial nerves II-XII intact. Normal speech. Normal gait. LABS Laboratory Results - last 24 hr 10/29/18 10/29/18 10/29/18 21:33 21:33 21:40 WBC 5.2 RBC 4.12 Hgb 13.7 Hct 39.5 MCV 96.0 MCH 33.2 D MCHC 34.6 RDW 13.1 D Plt Count 222 MPV 9.0 Absolute Neuts (auto) 2.7 Neutrophils % 51.8 Lymphocytes % 35.5 Monocytes % 9.0 Eosinophils % 2.9 Basophils % 0.8 Nucleated RBC % 0 PT with INR 11.60 INR 0.98 Sodium Potassium Chloride Carbon Dioxide Anion Gap BUN Creatinine Creat Clearance w eGFR Random Glucose Hemoglobin A1c % Calcium Magnesium Total Bilirubin AST ALT Alkaline Phosphatase Creatine Kinase Creatine Kinase Index CK-MB (CK-2) Troponin I Total Protein Albumin Triglycerides Cholesterol Total LDL Cholesterol HDL Cholesterol Urine Color Yellow Urine Appearance Slcloudy Urine pH 5.0 Ur Specific [place] 1.024 Urine Protein Negative Urine Glucose (UA) Negative Urine Ketones Negative Urine Blood Negative Urine Nitrite Negative Urine Bilirubin Negative Urine Urobilinogen Negative Ur Leukocyte Esterase Trace Urine WBC (Auto) 1 Urine RBC (Auto) 1 Ur Epithelial Cells Rare Hyaline Casts 1 Urine Mucus Rare 10/29/18 10/30/18 10/30/18 21:41 08:08 08:08 WBC 5.7 RBC 4.08 Hgb 13.4 Hct 39.4 MCV 96.6 H MCH 32.9 MCHC 34.1 RDW 13.0 Plt Count 230 MPV 9.3 Absolute Neuts (auto) Neutrophils % Lymphocytes % Monocytes % Eosinophils % Basophils % Nucleated RBC % PT with INR INR Sodium 140 140 Potassium 4.5 4.1 Chloride 105 106 Carbon Dioxide 27 26 Anion Gap 7 L 8 BUN 14 17 Creatinine 0.9 1.0 Creat Clearance w eGFR > 60 56.37 Random Glucose 87 126 H Hemoglobin A1c % Calcium 8.9 8.7 Magnesium 2.5 H Total Bilirubin 0.3 AST 23 ALT 23 Alkaline Phosphatase 86 Creatine Kinase 206 H Creatine Kinase Index 0.5 CK-MB (CK-2) 1.2 Troponin I < 0.02 < 0.02 Total Protein 7.6 Albumin 3.8 Triglycerides 170 H Cholesterol 197 Total LDL Cholesterol 115 H HDL Cholesterol 58 Urine Color Urine Appearance Urine pH Ur Specific [place] Urine Protein Urine Glucose (UA) Urine Ketones Urine Blood Urine Nitrite Urine Bilirubin Urine Urobilinogen Ur Leukocyte Esterase Urine WBC (Auto) Urine RBC (Auto) Ur Epithelial Cells Hyaline Casts Urine Mucus 10/30/18 10/30/18 08:08 08:08 WBC RBC Hgb Hct MCV MCH MCHC RDW Plt Count MPV Absolute Neuts (auto) Neutrophils % Lymphocytes % Monocytes % Eosinophils % Basophils % Nucleated RBC % PT with INR INR Sodium Cancelled Potassium Cancelled Chloride Cancelled Carbon Dioxide Cancelled Anion Gap Cancelled BUN Cancelled Creatinine Cancelled Creat Clearance w eGFR Cancelled Random Glucose Cancelled Hemoglobin A1c % 5.4 Calcium Cancelled Magnesium Total Bilirubin AST ALT Alkaline Phosphatase Creatine Kinase Creatine Kinase Index CK-MB (CK-2) Troponin I Total Protein Albumin Triglycerides Cancelled Cholesterol Cancelled Total LDL Cholesterol Cancelled HDL Cholesterol Cancelled Urine Color Urine Appearance Urine pH Ur Specific [place] Urine Protein Urine Glucose (UA) Urine Ketones Urine Blood Urine Nitrite Urine Bilirubin Urine Urobilinogen Ur Leukocyte Esterase Urine WBC (Auto) Urine RBC (Auto) Ur Epithelial Cells Hyaline Casts Urine Mucus ECHO Interpretation Summary Normal LV size and function. The right ventricle is normal in size and function. Normal left and right atrial size and function. The mitral valve leaflets appear normal. There is no evidence of stenosis, fluttering, or prolapse. The tricuspid valve is normal. The aortic valve is normal in structure and function. The aortic root is normal size. There is no pericardial effusion. [id number] NM/G STR AKHIL 1 DAY* REASON FOR EXAM:Chest Pain MEDICATION:Losartan GATED STRESS EXERCISE MYOVIEW PERFUSION SCAN-1DAY PROTOCOL. DESCRIPTION OF TEST: Exercise stress testing was performed on a treadmill utilizing a River Protocol. Blood pressure was recorded at frequent intervals from an arm cuff. Patient was injected with 13.0mCi Tc-99m MYOVIEW at rest and 31.7mCi Tc-99m MYOVIEW was injected at peak stress. Rest and stress images were acquired using a HomelocE. SPECT camera in the tomographic technique. Planar and tomographic images were acquired from an TURNER to LPO degree completing a 180 degree arc. Images were reconstructed in the horizontal long, vertical long and short axis views. Left ventricular gated analysis was also performed. EXERCISE HEMODYNAMICS: Resting heart rate was 56bpm, and increased to 136 bpm at peak exercise, [id number] of the maximum predicted target heart rate. Resting blood pressure was 124/86 mm /hg and increased to 220/130 mm/hg at peak exercise. Patient exercised for a total of 3:45 minutes, reaching Stage 2 of River Protocol at a speed of 2.5mph and 12.00 elevation. The total workload achieved was 5.50 METS. Exercise was stopped due to achievement of target heart rate. ELECTROCARDIOGRAPHIC FINDINGS:The baseline EKG showed NSR at 56 BPM with normal intervals, normal axis, and NSSTTW changes. There were no ST segment changes during stress. GATED PERFUSION SCAN AND SPECT IMAGES:The EF was 61% with normal LV function. There was normal perfusion of myocardium. FINAL CONCLUSION: No EKG changes with exercise. Normal LV function. Normal perfusion of myocardium. HOSPITAL COURSE: Date of Admission:10/30/18 Date of Discharge: 10/30/18 63 yo obese, F, with a PMHx of HTN, presenting today with sharp, 9/10, non- radiating, substernal chest pain w/ Stress test 2011 showing small mild inferolateral ischemia, small apical septal ischemia, EF 57% Admitted for Atypical chest pain, r/o ACS - CXR no acute pathology. EKG NSR, no changes from previous. trop neg x2. 325 ASA given in ED. tele monitoring w/o events. Echo nl. Stress test EF was 61% with normal LV function. No EKG changes with exercise. Normal perfusion of myocardium. A1c 5.4, lipid panel: trig 170, LDL 115, HDL 58. will start pt on Lipitor 20mg HS (ASCVD ~7.5%). Pt is currebntyl cp free. Pt counseled on weight loss. #HTN -cont. home Losartan 50mg daily Pt stable and ready for dc w/ appropriate outpt f/u. Minutes to complete discharge: 39 Discharge Summary Reason For Visit: CHEST PAIN Current Active Problems Chest pain (Acute) Condition: Stable - Instructions Diet, Activity, Other Instructions: You came in for chest pain. we gave you aspirin which helped with your symptoms. We did an ultrasound and stress test of your heart which were both normal and showed no signs of heart attack. Please resume your home meds. We noticed your cholesterol was a little elevated. we will be starting you on new med called Lipitor for your cholesterol. Please take lipitor 20mg once a day at bedtime. Please monitor and record your blood pressure at home and bring these results to your primary care physician Please monitor your weight and increase your daily exercise, with walking or light jogging as tolerated. Please avoid fatty or fried foods. Please follow up with your primary care physician within 1 week. Please follow up with Manager Dem[facility] in 1 week. If you experience any more/worsening of chest pain, or any shortness of breath, fevers, chills, nausea, vomit, diarrhea, numbness or tingling, Headache, please call 911 or go to the ER. Referrals: Kisha Rahman [Primary Care Provider] - 1 Week Disposition: HOME - Home Medications Comprehensive Discharge Medication List: Ambulatory Orders Atorvastatin Ca [Lipitor] 20 mg PO HS 30 Days #30 tablet 10/30/18 Losartan Potassium 50 mg PO DAILY 10/30/18 This patient is new to me today: Yes Date on this admission: 10/30/18 Emergency Visit: Yes ED Registration Date: 10/30/18 Care time: The patient presented to the Emergency Department on the above date and was hospitalized for further evaluation of their emergent condition. Critical Care patient: No - Discharge Referral Referred to [facility] Med P.C.: No
[2018-10-30] MEDS ORDERED: ATORVASTATIN CA 40 MG TABLET (FP) PO SCH (22:00)
[2018-10-30] MEDS ORDERED: ATORVASTATIN CA 20 MG TABLET (FP) PO SCH (22:00)
== END 2018-10-30 17:55 | disposition home or self-care (01) ==
LOC: JER 20:45 → JERBED 10-30 00:15 → J4W 10-30 13:05
PROVIDERS: ADMIT Internal Medicine; ATTEND Internal Medicine
DX: R07.89 Other chest pain (principal); I10 Essential (primary) hypertension; E78.5 Hyperlipidemia, unspecified; E66.01 Morbid (severe) obesity due to excess calories; Z68.39 Body mass index [BMI] 39.0-39.9, adult
CPT/HCPCS: 36415; 71046-TC-FY; 78452-TC; 80048; 80053; 80061; 81003; 81015; 82550; 82553; 83036; 83721; 83735; 84484; 85025; 85027; 85610; 93005; 93010; 93017; 93306-TC; 99284-25; A9502; G0378

== ENCOUNTER 2019-07-03 04:22 | Emergency (ER) | payer OTHER ==
[2019-07-03 04:57] VITALS: BMI 38.7
--- NOTE | 2019-07-03 05:00 | PDOC ---
History of Present Illness - General Chief Complaint: Headache Stated Complaint: HEADACHE Time Seen by Provider: 07/03/19 04:59 - History of Present Illness Initial Comments: 07/03/19 05:01 64 year old woman with a history of HTN who presents with 2 days of frontal headache onset when waking up from sleep one day ago, she took tylenol with moderate relief. She states the headache is associated with some slight nausea. SHe has also had several days if dysuria but no hematuria. She denies chest pain , shortness of breath or fever. She admits to some constipation. ROS GENERAL/CONSTITUTIONAL: No fever or chills. No weakness. CARDIOVASCULAR: No chest pain or shortness of breath RESPIRATORY: No cough, wheezing, or hemoptysis. GASTROINTESTINAL: + slight nausea, No vomiting, diarrhea + constipation. GENITOURINARY: No dysuria, frequency, or change in urination. MUSCULOSKELETAL: No joint or muscle swelling or pain. No neck or back pain. SKIN: No rash NEUROLOGIC: + headache, vertigo, loss of consciousness, or change in strength/ sensation. PE GENERAL: Awake, alert, and fully oriented, in no acute distress HEAD: No signs of trauma, normocephalic, atraumatic EYES: PERRLA, EOMI, sclera anicteric, conjunctiva clear ENT: oropharynx clear without exudates. Moist mucosa NECK: Normal ROM, supple LUNGS: No distress, speaks full sentences, clear to auscultation bilaterally HEART: Regular rate and rhythm, normal S1 and S2, no murmurs, rubs or gallops, peripheral pulses normal and equal bilaterally. ABDOMEN: Soft, nontender No guarding, no rebound. No masses EXTREMITIES : Normal inspection, Normal range of motion, no edema. No clubbing or cyanosis. NEUROLOGICAL: Cranial nerves II through XII grossly intact. Normal speech, normal gait, no focal sensorimotor deficits SKIN: Warm, Dry, normal turgor, no rashes or lesions noted MDM DDX including but not limited to: uti, constipation migraine r.o intracranial pathology ED Course: Kristan Hernandes, PGY2 Emergency Medicine Past History - Past Medical History Allergies/Adverse Reactions: Allergies Allergy/AdvReac Type Severity Reaction Status Date / Time No Known Drug Allergies Allergy Verified 07/03/19 04:48 Home Medications: Ambulatory Orders Losartan Potassium 50 mg PO DAILY 10/30/18 Anemia: No Asthma: No Cancer: No Cardiac Disorders: No CVA: No COPD: No CHF: No Dementia: No Diabetes: No GI Disorders: No Disorders: No HTN: Yes Hypercholesterolemia: No Liver Disease: No Seizures: No Thyroid Disease: No - Surgical History Abdominal Surgery: No Appendectomy: No Cardiac Surgery: No (01/2015 CARD CATH - NEGATIVE) Cholecystectomy: No Lung Surgery: No Neurologic Surgery: No Orthopedic Surgery: Yes (R TOTAL KNEE REPLACEMENT 01/2015) - Psycho Social/Smoking Cessation Hx Smoking Status: No Smoking History: Never smoked Have you smoked in the past 12 months: No Number of Cigarettes Smoked Daily: 0 Hx Alcohol Use: Yes Drug/Substance Use Hx: No Substance Use Type: Alcohol Hx Substance Use Treatment: No *Physical Exam - Vital Signs Last Vital Signs Temp Pulse Resp BP Pulse Ox 97.8 F 68 20 138/89 99 07/03/19 04:25 07/03/19 04:25 07/03/19 04:25 07/03/19 04:25 07/03/19 04:25 Discharge - Discharge Information Problems reviewed: Yes Clinical Impression/Diagnosis: Headache Condition: Fair Disposition: HOME - Admission No - Follow up/Referral Referrals: Kisha Rahman [Primary Care Provider] - - Patient Discharge Instructions Patient Printed Discharge Instructions: DI for Headache, DI for Dysuria -- Adult Additional Instructions: You were seen in the ED for complaints of headache and burning with urination Your Head CT was unremarkable You should take Tylenol and Motrin for your headache Follow up with your Family Doctor within 1 week Return to the ED if you experience worsening headaches, nausea, vomiting, chest pain, shortness of breath or any other concerning symptoms. - Post Discharge Activity
--- NOTE | 2019-07-03 05:04 | PDOC ---
Attending Attestation - Resident Resident Name: Kristan Hernandes - ED Attending Attestation I have performed the following: I have examined & evaluated the patient, The case was reviewed & discussed with the resident, I agree w/resident's findings & plan - HPI HPI: 07/03/19 06:50 see resident hpi - Physicial Exam PE: 07/03/19 06:51 agree with resident exam - Medical Decision Making 07/03/19 06:51 64-year-old female with headache and dysuria CT scan of the brain is negative Urinalysis consistent with urinary tract infection Patient feeling better after Tylenol in the emergency department Will DC on Keflex
[2019-07-03] MEDS ORDERED: SODIUM CHLORIDE 1,000 ML IV SCH (05:45)
[2019-07-03] MEDS ORDERED: METOCLOPRAMIDE HCL INJECTION 10 MG/2 ML VIAL IVPUSH ONE (05:46)
[2019-07-03] MEDS ORDERED: ACETAMINOPHEN 1000 MG/100 ML VIAL (NON FORMULARY) IVPB ONE (05:46)
[2019-07-03] MEDS ORDERED: METOCLOPRAMIDE HCL INJECTION 10 MG/2 ML VIAL ONE (05:54)
[2019-07-03] MEDS ORDERED: ACETAMINOPHEN INJECTION 100 ML IVPB ONE (05:54)
[2019-07-03] MEDS ORDERED: ACETAMINOPHEN 325 MG TABLET (FP) PO ONE (06:32)
[2019-07-03 06:37] LABS: EPI CELLS 3.8 /HPF (0-5/HPF); HYALINE CASTS 6 /lpf (0-8); URINE APPEARANCE CLEAR; URINE BACTERIA 90.7 /hpf (NEGATIVE); URINE BILIRUBIN NEGATIVE (NEGATIVE); URINE COLOR YELLOW; URINE GLUCOSE (UA) NEGATIVE (NEGATIVE); URINE KETONE NEGATIVE (NEGATIVE); URINE LEUK ESTERASE 1+ (NEGATIVE); URINE NITRITE NEGATIVE (NEGATIVE); URINE PROTEIN NEGATIVE (NEGATIVE); URINE RBC 2 /hpf (0-4); URINE WBC 8 /hpf (0-5)
[2019-07-03] MEDS ORDERED: CEPHALEXIN MONOHYDRATE 500 MG CAPSULE (UD) PO ONE (06:39)
[2019-07-03] MEDS ORDERED: ACETAMINOPHEN 325 MG TABLET (FP) ONE (06:43)
[2019-07-03] MEDS ORDERED: CEPHALEXIN MONOHYDRATE 500 MG CAPSULE (UD) ONE (06:49)
[2019-07-03 07:17] VITALS: PULSE 90; TEMP 97.4
[2019-07-03 07:25] VITALS: BP 159/87
== END 2019-07-03 07:17 | disposition home or self-care (01) ==
LOC: JER 04:22
DX: R51 Headache (principal); N39.0 Urinary tract infection, site not specified; I10 Essential (primary) hypertension; Z98.61 Coronary angioplasty status
CPT/HCPCS: 70450-TC; 81003; 87086; 99282-25

== ENCOUNTER 2019-09-03 10:16 | Day surgery (SDC) | payer OTHER ==
[2019-09-02 13:37] VITALS: BMI 41.1
[2019-09-03 11:10] VITALS: TEMP 98.1
[2019-09-03] MEDS ORDERED: TETRACAINE/BENZOCAINE/BUTAMBEN 20 GM SPR TP ONE (11:25)
[2019-09-03 14:10] VITALS: BP 120/69; PULSE 65
--- NOTE | 2019-09-04 15:29 | PATH ---
Surgical Pathology Report Patient Name: CAIT GONZALES [facility]. Rec. #: [id number] /Age/Gender: 1955 (Age: 64) / F Account: [id number] Location: U-ENDOSCOPY Taken: 09/03/2019 Received: 09/03/2019 Reported: 09/04/2019 Physicians: Kyler Sofia M.D. Specimen(s) Received A: STOMACH B: DISTAL ESOPHAGUS C: CECAL CANCER Clinical History Abdominal pain, screening colonoscopy Postoperative diagnosis: Abdominal pain, cecal cancer Final Diagnosis A. STOMACH, BIOPSY: GASTRIC OXYNTIC MUCOSA WITH SEVERE CHRONIC ACTIVE GASTRITIS. IMMUNOHISTOCHEMICAL STAIN FOR H. PYLORI IS POSITIVE (NUMEROUS). B. DISTAL ESOPHAGUS BIOPSY: SQUAMOCOLUMNAR MUCOSA WITH MODERATE CHRONIC INFLAMMATION AND CHANGES OF MILD REFLUX ESOPHAGITIS. NO INTESTINAL METAPLASIA OR DYSPLASIA IDENTIFIED. C. CECAL CANCER, BIOPSY: ADENOCARCINOMA, MODERATELY DIFFERENTIATED. SEE COMMENT. Comment: Part C, Findings discussed with Dr. Sofia. Additional studies for Mismatch repair proteins (MMR) are pending and will be reported as an addendum. Electronically Signed Evon Vail M.D. Addendum Reported: 09/05/2019 Addendum Diagnosis Immunohistochemical stains for MisMatch Repair Protein Analysis performed at [facility] in [place], [place] ([id number]) and interpreted at [facility] (block C) show the following: RESULTS: HMLH-1 INTACT NUCLEAR EXPRESSION HMSH-2 INTACT NUCLEAR EXPRESSION HMSH-6 INTACT NUCLEAR EXPRESSION PMS2 INTACT NUCLEAR EXPRESSION INTERPRETATION: No loss of nuclear expression of MMR proteins: low probability of microsatellite instability-high (MSI-H) Evon Vail M.D. Gross Description A. Received in formalin, labeled "stomach biopsy" is a hernandez, irregular portion of soft tissue measuring 0.8 cm. in greatest dimension. The specimen is submitted in toto in one cassette. B. Received in formalin, labeled "distal esophagus" is a hernandez, irregular portion of soft tissue measuring 0.5 cm. in greatest dimension. The specimen is submitted in toto in one cassette. C. Received in formalin labeled "cecal cancer biopsy," is a 0.8 x 0.6 x 0.2 cm aggregate of hernandez-brown soft tissue fragments. The formalin is filtered and the specimen is entirely submitted in one cassette. 09/03/2019 saudi09/03/2019
== END 2019-09-03 15:19 | disposition home or self-care (01) ==
LOC: JASU-ENDO 10:16
PROVIDERS: ATTEND Internal Medicine Gastroenterology
PROC: 0DB68ZX Excision of Stomach, Via Natural or Artificial Opening Endoscopic, Diagnostic (ICD-10-PCS; 2019-09-03)
PROC: 0DBH8ZX Excision of Cecum, Via Natural or Artificial Opening Endoscopic, Diagnostic (ICD-10-PCS; 2019-09-03)
PROC: 0DB48ZX Excision of Esophagogastric Junction, Via Natural or Artificial Opening Endoscopic, Diagnostic (ICD-10-PCS; principal; 2019-09-03 11:30)
DX: Z51.11 Encounter for antineoplastic chemotherapy (principal); C18.0 Malignant neoplasm of cecum; K29.50 Unspecified chronic gastritis without bleeding; K21.0 Gastro-esophageal reflux disease with esophagitis
CPT/HCPCS: 88305-TC; 88342-TC

== ENCOUNTER 2022-02-06 17:13 | Emergency (ER) | payer OTHER ==
[2022-02-06 17:18] VITALS: BP 122/77; PULSE 68; TEMP 97; BMI 38.7
[2022-02-06] MEDS ORDERED: diazePAM 5 MG TABLET PO ONE (19:09)
[2022-02-06] MEDS ORDERED: KETOROLAC TROMETHAMINE 30 MG/1 ML VIAL IM ONE (19:09)
[2022-02-06] MEDS ORDERED: diazePAM 5 MG TABLET ONE (19:20)
[2022-02-06] MEDS ORDERED: KETOROLAC TROMETHAMINE 30 MG/1 ML VIAL ONE (19:21)
[2022-02-06 20:12] LABS: BASO % 0.7 % (0-2.0); EOS % 1.8 % (0-4.5); HEMATOCRIT 40.6 % (32.4-45.2); HEMOGLOBIN 13.5 GM/dL (10.7-15.3); LYMPH % 37.3 % (8-40); MCH 31.9 pg (25.7-33.7); MCHC 33.3 g/dl (32.0-36.0); MEAN CELL VOLUME 95.8 fl (80-96); MEAN PLT VOLUME 8.8 fl (7.5-11.1); MONO % 9.2 % (3.8-10.2); PLATELET COUNT 221 10^3/uL (134-434); RBC 4.23 M/mm3 (3.60-5.2); RDW 13.2 % (11.6-15.6); URINE APPEARANCE CLEAR; URINE BILIRUBIN NEGATIVE (NEGATIVE); URINE COLOR YELLOW; URINE GLUCOSE (UA) NEGATIVE (NEGATIVE); URINE KETONE TRACE (NEGATIVE); URINE LEUK ESTERASE NEGATIVE (NEGATIVE); URINE NITRITE NEGATIVE (NEGATIVE); URINE PROTEIN NEGATIVE (NEGATIVE); URINE UROBILINOGEN 0.2 mg/dL (0.2-1.0); WHITE BLOOD COUNT 4.6 K/mm3 (4.0-10.0)
[2022-02-06 20:32] LABS: CALCIUM 9.8 mg/dL (8.5-10.1)
[2022-02-06 20:33] LABS: BLOOD UREA NITROGEN 12.4 mg/dL (7-18)
[2022-02-06 20:36] LABS: CREATININE 0.9 mg/dL (0.55-1.3)
[2022-02-06 20:38] LABS: BILIRUBIN,TOTAL 0.5 mg/dL (0.2-1)
== END 2022-02-06 21:58 | disposition home or self-care (01) ==
LOC: JERFT 17:13 → JER 17:13 → JERFT 21:58
PROC: 3E023GC Introduction of Other Therapeutic Substance into Muscle, Percutaneous Approach (ICD-10-PCS; principal; 2022-02-06)
DX: M54.41 Lumbago with sciatica, right side (principal)
CPT/HCPCS: 36415; 80053; 81003; 85025; 99284-25

== ENCOUNTER 2022-02-08 15:12 | Emergency (ER) | payer OTHER ==
[2022-02-08 15:31] VITALS: BP 146/97; PULSE 68; TEMP 98.8; BMI 38.7
[2022-02-08] MEDS ORDERED: KETOROLAC TROMETHAMINE 30 MG/1 ML VIAL IVPUSH ONE (17:04)
[2022-02-08] MEDS ORDERED: KETOROLAC TROMETHAMINE 30 MG/1 ML VIAL ONE (17:33)
[2022-02-08 18:12] LABS: URINE APPEARANCE CLEAR; URINE BILIRUBIN NEGATIVE (NEGATIVE); URINE COLOR YELLOW; URINE GLUCOSE (UA) NEGATIVE (NEGATIVE); URINE KETONE TRACE (NEGATIVE); URINE LEUK ESTERASE NEGATIVE (NEGATIVE); URINE NITRITE NEGATIVE (NEGATIVE); URINE PROTEIN NEGATIVE (NEGATIVE); URINE UROBILINOGEN 0.2 mg/dL (0.2-1.0)
[2022-02-08 18:18] LABS: BASO % 0.6 % (0-2.0); EOS % 2.1 % (0-4.5); HEMATOCRIT 39.2 % (32.4-45.2); HEMOGLOBIN 13.1 GM/dL (10.7-15.3); MCHC 33.5 g/dl (32.0-36.0); MEAN CELL VOLUME 95.5 fl (80-96); MEAN PLT VOLUME 9.1 fl (7.5-11.1); MONO % 10.5 % (3.8-10.2); NEUT % 50.8 % (42.8-82.8); PLATELET COUNT 236 10^3/uL (134-434); RDW 13.1 % (11.6-15.6); WHITE BLOOD COUNT 4.1 K/mm3 (4.0-10.0)
[2022-02-08 19:02] LABS: CALCIUM 9.6 mg/dL (8.5-10.1)
[2022-02-08 19:03] LABS: ALBUMIN 3.9 g/dl (3.4-5.0); BLOOD UREA NITROGEN 14.7 mg/dL (7-18)
[2022-02-08 19:06] LABS: CREATININE 0.8 mg/dL (0.55-1.3)
[2022-02-08 19:07] LABS: BILIRUBIN,TOTAL 0.4 mg/dL (0.2-1)
[2022-02-08 19:08] LABS: TOT PROT 7.6 g/dl (6.4-8.2)
== END 2022-02-08 21:17 | disposition home or self-care (01) ==
LOC: JER 15:12
PROC: 3E0333Z Introduction of Anti-inflammatory into Peripheral Vein, Percutaneous Approach (ICD-10-PCS; principal; 2022-02-08)
DX: M54.42 Lumbago with sciatica, left side (principal)
CPT/HCPCS: 36415; 72131-TC; 74177-TC; 80053; 81003; 85025; 87086; 99285-25; Q9967

== ENCOUNTER 2022-05-04 05:48 | Emergency (ER) | payer OTHER ==
[2022-05-04 06:01] VITALS: BP 152/81; PULSE 63; RESP 18; TEMP 98.3; BMI 38.5
[2022-05-04 09:49] LABS: BASO % 0.4 % (0-2.0); EOS % 2.4 % (0-4.5); HEMATOCRIT 38.7 % (32.4-45.2); HEMOGLOBIN 13.2 GM/dL (10.7-15.3); MCH 32.9 pg (25.7-33.7); MCHC 34.1 g/dl (32.0-36.0); MEAN CELL VOLUME 96.5 fl (80-96); MEAN PLT VOLUME 9.2 fl (7.5-11.1); MONO % 11.5 % (3.8-10.2); NEUT % 49.7 % (42.8-82.8); RBC 4.01 M/mm3 (3.60-5.2); RDW 12.8 % (11.6-15.6)
[2022-05-04 09:53] LABS: CALCIUM 9.4 mg/dL (8.5-10.1)
[2022-05-04 09:54] LABS: ALBUMIN 3.8 g/dl (3.4-5.0)
[2022-05-04 09:56] LABS: PLATELET COUNT 167 10^3/uL (134-434)
[2022-05-04 09:57] LABS: CREATININE 0.9 mg/dL (0.55-1.3)
[2022-05-04 09:58] LABS: BILIRUBIN,TOTAL 0.6 mg/dL (0.2-1); TOT PROT 7.4 g/dl (6.4-8.2)
== END 2022-05-04 13:00 | disposition home or self-care (01) ==
LOC: JER 05:48
DX: R04.2 Hemoptysis (principal)
CPT/HCPCS: 36415; 71046-TC-FY; 71260-TC; 80053; 85025; 93005; 93010; 99284-25

== ENCOUNTER 2022-05-13 13:57 | Observation (INO) | payer OTHER ==
[2022-05-13 16:29] LABS: BASO % 0.6 % (0-2.0); EOS % 2.4 % (0-4.5); HEMATOCRIT 38.6 % (32.4-45.2); HEMOGLOBIN 13.4 GM/dL (10.7-15.3); LYMPH % 38.8 % (8-40); MCH 33.4 pg (25.7-33.7); MCHC 34.7 g/dl (32.0-36.0); MEAN CELL VOLUME 96.1 fl (80-96); MEAN PLT VOLUME 8.9 fl (7.5-11.1); MONO % 12.4 % (3.8-10.2); NEUT % 45.8 % (42.8-82.8); PLATELET COUNT 223 10^3/uL (134-434); RBC 4.02 M/mm3 (3.60-5.2); RDW 12.6 % (11.6-15.6); WHITE BLOOD COUNT 4.3 K/mm3 (4.0-10.0)
[2022-05-13 16:43] LABS: CALCIUM 9.3 mg/dL (8.5-10.1)
[2022-05-13 16:44] LABS: ALBUMIN 3.7 g/dl (3.4-5.0); BLOOD UREA NITROGEN 11.6 mg/dL (7-18)
[2022-05-13 16:46] LABS: CREATININE 0.9 mg/dL (0.55-1.3)
[2022-05-13 16:48] LABS: BILIRUBIN,TOTAL 0.4 mg/dL (0.2-1)
[2022-05-13 16:49] LABS: TOT PROT 7.3 g/dl (6.4-8.2)
[2022-05-13 16:52] LABS: N-TERMINAL BNP 107.8 pg/ml (5-125)
[2022-05-13 23:09] VITALS: BMI 40.2
[2022-05-14] MEDS ORDERED: ACETAMINOPHEN 1000 MG/100 ML BAG IVPB ONE (06:29)
[2022-05-14 07:03] LABS: URINE APPEARANCE CLEAR; URINE BILIRUBIN NEGATIVE (NEGATIVE); URINE COLOR YELLOW; URINE GLUCOSE (UA) NEGATIVE (NEGATIVE); URINE KETONE NEGATIVE (NEGATIVE); URINE LEUK ESTERASE NEGATIVE (NEGATIVE); URINE NITRITE NEGATIVE (NEGATIVE); URINE PROTEIN NEGATIVE (NEGATIVE); URINE UROBILINOGEN 0.2 mg/dL (0.2-1.0)
[2022-05-14 09:13] LABS: BASO % 0.6 % (0-2.0); EOS % 2.7 % (0-4.5); HEMATOCRIT 38.4 % (32.4-45.2); HEMOGLOBIN 12.8 GM/dL (10.7-15.3); LYMPH % 38.4 % (8-40); MCH 32.1 pg (25.7-33.7); MCHC 33.3 g/dl (32.0-36.0); MEAN CELL VOLUME 96.3 fl (80-96); MEAN PLT VOLUME 9.6 fl (7.5-11.1); NEUT % 49.3 % (42.8-82.8); PLATELET COUNT 222 10^3/uL (134-434); RBC 3.99 M/mm3 (3.60-5.2); RDW 12.9 % (11.6-15.6); WHITE BLOOD COUNT 4.7 K/mm3 (4.0-10.0)
[2022-05-14 09:23] LABS: INR 1.02 (0.83-1.09); PROTHROMBIN TIME (PATIENT) 11.7 SEC (9.7-13.0)
[2022-05-14 09:25] LABS: ACTIVATED PTT 32.4 SECONDS (25.2-36.5)
[2022-05-14] MEDS ORDERED: ACETAMINOPHEN 325 MG TABLET (FP) ONE (09:37)
[2022-05-14] MEDS ORDERED: LOSARTAN POTASSIUM 50 MG TABLET PO SCH (10:00)
[2022-05-14] MEDS ORDERED: ENOXAPARIN NA (PORCINE) 40 MG/0.4 ML DISP.SYRIN SQ SCH (10:00)
[2022-05-14 10:11] LABS: CALCIUM 9.1 mg/dL (8.5-10.1)
[2022-05-14 10:12] LABS: ALBUMIN 3.5 g/dl (3.4-5.0); BLOOD UREA NITROGEN 12.7 mg/dL (7-18)
[2022-05-14 10:14] LABS: CREATININE 0.9 mg/dL (0.55-1.3); PHOSPHOROUS 3.8 mg/dL (2.5-4.9)
[2022-05-14 10:16] LABS: BILIRUBIN,TOTAL 0.7 mg/dL (0.2-1); TOT PROT 6.9 g/dl (6.4-8.2)
[2022-05-14 12:32] VITALS: BP 146/86; PULSE 64; RESP 24; TEMP 98.1
== END 2022-05-14 14:49 | disposition home or self-care (01) ==
LOC: JER 13:57 → JERBED 17:28 → J4W 22:23
PROVIDERS: ADMIT Internal Medicine; ATTEND Internal Medicine
PROC: 3E023GC Introduction of Other Therapeutic Substance into Muscle, Percutaneous Approach (ICD-10-PCS; principal; 2022-05-13)
DX: R06.02 Shortness of breath (principal); R07.9 Chest pain, unspecified; E66.01 Morbid (severe) obesity due to excess calories; Z68.41 Body mass index [BMI] 40.0-44.9, adult; J45.909 Unspecified asthma, uncomplicated; Z85.038 Personal history of other malignant neoplasm of large intestine; Z96.651 Presence of right artificial knee joint; R04.2 Hemoptysis
CPT/HCPCS: 0241U-QW; 36415; 71046-TC-FY; 80053; 81003; 83735; 83880; 84100; 84443; 84484; 85025; 85610; 85730; 87086; 93005; 93010; 96372; 99285-25; G0378

== ENCOUNTER 2023-01-04 21:37 | Observation (INO) | payer OTHER ==
[2023-01-04] MEDS ORDERED: ASPIRIN 81 MG CHEWABLE TABLETS PO ONE (23:35)
[2023-01-04] MEDS ORDERED: ASPIRIN 81 MG CHEWABLE TABLETS ONE (23:49)
[2023-01-05 00:57] LABS: BASO % 0.6 % (0-2.0); EOS % 2.7 % (0-4.5); HEMATOCRIT 37.6 % (32.4-45.2); LYMPH % 33.1 % (8-40); MCH 32.6 pg (25.7-33.7); MCHC 34.6 g/dl (32.0-36.0); MEAN CELL VOLUME 94.4 fl (80-96); NEUT % 54.6 % (42.8-82.8); PLATELET COUNT 235 10^3/uL (134-434); RBC 3.98 M/mm3 (3.60-5.2); WHITE BLOOD COUNT 5.8 K/mm3 (4.0-10.0)
[2023-01-05 01:08] LABS: INR 0.95 (0.83-1.09)
[2023-01-05 01:11] LABS: ACTIVATED PTT 33.2 SECONDS (25.2-36.5)
[2023-01-05 01:17] LABS: POTASSIUM 4.6 mmol/L (3.5-5.1)
[2023-01-05 01:20] LABS: ALBUMIN 3.8 g/dl (3.4-5.0); CALCIUM 9.5 mg/dL (8.5-10.1)
[2023-01-05 01:25] LABS: TOT PROT 7.8 g/dl (6.4-8.2)
[2023-01-05 01:26] LABS: BILIRUBIN,TOTAL 0.3 mg/dL (0.2-1)
[2023-01-05 01:29] LABS: N-TERMINAL BNP 27.1 pg/ml (5-125)
[2023-01-05 01:51] LABS: BLOOD UREA NITROGEN 19.6 mg/dL (7-18); MAGNESIUM 2.1 mg/dL (1.8-2.4)
[2023-01-05 07:50] VITALS: BMI 38.9
[2023-01-05] MEDS: ENOXAPARIN NA (PORCINE) 40 MG/0.4 ML DISP.SYRIN SQ SCH (10:13)
[2023-01-05] MEDS: LOSARTAN 50MG/HCTZ 12.5MG 1 TAB PO SCH (10:13)
[2023-01-05] MEDS: ASPIRIN 81 MG CHEWABLE TABLETS PO SCH (10:13)
[2023-01-05 13:01] LABS: BASO % 0.5 % (0-2.0); HEMATOCRIT 36.6 % (32.4-45.2); HEMOGLOBIN 12.4 GM/dL (10.7-15.3); LYMPH % 34.3 % (8-40); MCH 32.1 pg (25.7-33.7); MEAN CELL VOLUME 94.5 fl (80-96); MEAN PLT VOLUME 8.9 fl (7.5-11.1); MONO % 10.7 % (3.8-10.2); NEUT % 51.5 % (42.8-82.8); PLATELET COUNT 228 10^3/uL (134-434); RBC 3.87 M/mm3 (3.60-5.2); RDW 13.1 % (11.6-15.6); WHITE BLOOD COUNT 5.2 K/mm3 (4.0-10.0)
[2023-01-05 13:24] LABS: POTASSIUM 4.3 mmol/L (3.5-5.1)
[2023-01-05 13:26] LABS: ALBUMIN 3.4 g/dl (3.4-5.0); BLOOD UREA NITROGEN 14.9 mg/dL (7-18)
[2023-01-05 13:29] LABS: CREATININE 0.8 mg/dL (0.55-1.3); PHOSPHOROUS 3.4 mg/dL (2.5-4.9)
[2023-01-05 13:31] LABS: BILIRUBIN,TOTAL 0.4 mg/dL (0.2-1)
[2023-01-05] MEDS ORDERED: ACETAMINOPHEN 325 MG TABLET (FP) PO PRN (15:40)
[2023-01-05] MEDS ORDERED: ATORVASTATIN CA 20 MG TABLET (FP) PO ONE (16:45)
[2023-01-06 09:23] VITALS: RESP 18; TEMP 97.8
[2023-01-06] MEDS: ENOXAPARIN NA (PORCINE) 40 MG/0.4 ML DISP.SYRIN SQ SCH (10:15)
[2023-01-06] MEDS: ASPIRIN 81 MG CHEWABLE TABLETS PO SCH (10:15)
[2023-01-06] MEDS: LOSARTAN 50MG/HCTZ 12.5MG 1 TAB PO SCH (10:15)
[2023-01-06 15:48] VITALS: BP 130/70; PULSE 60
[2023-01-06] MEDS ORDERED: ATORVASTATIN CA 20 MG TABLET (FP) PO SCH (22:00)
[2023-01-06] MEDS ORDERED: ATORVASTATIN CA 40 MG TABLET (FP) PO SCH (22:00)
== END 2023-01-06 16:01 | disposition home or self-care (01) ==
LOC: JER 21:37 → JERBED 01-05 03:51 → J4W 01-05 06:51
PROVIDERS: ADMIT Internal Medicine; ATTEND Internal Medicine
PROC: 3E023GC Introduction of Other Therapeutic Substance into Muscle, Percutaneous Approach (ICD-10-PCS; principal; 2023-01-05)
DX: R11.0 Nausea (principal); Z85.038 Personal history of other malignant neoplasm of large intestine; I10 Essential (primary) hypertension; J45.909 Unspecified asthma, uncomplicated; R91.1 Solitary pulmonary nodule; M79.602 Pain in left arm; M79.601 Pain in right arm
CPT/HCPCS: 36415; 71046-TC-FY; 71275-TC; 80053; 80061; 82550; 83036; 83735; 83880; 84100; 84484; 85025; 85379; 85610; 85730; 93005; 93010; 96372; 99285-25; C9803-CS; G0378; U0003; U0005

== ENCOUNTER 2023-01-18 13:22 | Emergency (ER) | payer OTHER ==
[2023-01-18 13:30] VITALS: BP 150/84; PULSE 72; RESP 20; TEMP 97.6; BMI 38.7
[2023-01-18] MEDS ORDERED: CYCLOBENZAPRINE HCL 10 MG TABLET (FP) PO ONE (14:10)
[2023-01-18] MEDS ORDERED: KETOROLAC TROMETHAMINE 30 MG/1 ML VIAL IVPUSH ONE (14:10)
[2023-01-18] MEDS ORDERED: SODIUM CHLORIDE 0.9% 500 ML INFUS.BAG IV ONE (14:11)
[2023-01-18] MEDS ORDERED: ACETAMINOPHEN 1000 MG/100 ML BAG IVPB ONE (14:11)
[2023-01-18] MEDS ORDERED: CYCLOBENZAPRINE HCL 10 MG TABLET (FP) ONE (14:21)
[2023-01-18] MEDS ORDERED: ACETAMINOPHEN INJECTION 100 ML IVPB ONE (14:21)
[2023-01-18] MEDS ORDERED: KETOROLAC TROMETHAMINE 30 MG/1 ML VIAL ONE (14:21)
[2023-01-18 14:46] LABS: BASO % 0.8 % (0-2.0); EOS % 2.2 % (0-4.5); HEMATOCRIT 36.6 % (32.4-45.2); HEMOGLOBIN 12.8 GM/dL (10.7-15.3); MCH 33.1 pg (25.7-33.7); MCHC 35.1 g/dl (32.0-36.0); MEAN CELL VOLUME 94.3 fl (80-96); MEAN PLT VOLUME 8.7 fl (7.5-11.1); MONO % 10.7 % (3.8-10.2); NEUT % 57.3 % (42.8-82.8); PLATELET COUNT 260 10^3/uL (134-434); RBC 3.87 M/mm3 (3.60-5.2); RDW 12.8 % (11.6-15.6); WHITE BLOOD COUNT 5.8 K/mm3 (4.0-10.0)
[2023-01-18 15:16] LABS: POTASSIUM 4.3 mmol/L (3.5-5.1)
[2023-01-18 15:17] LABS: BLOOD UREA NITROGEN 9.3 mg/dL (7-18); CALCIUM 9.5 mg/dL (8.5-10.1)
[2023-01-18 15:21] LABS: CREATININE 0.9 mg/dL (0.55-1.3)
== END 2023-01-18 18:32 | disposition home or self-care (01) ==
LOC: JERFT 13:22
PROC: 3E033NZ Introduction of Analgesics, Hypnotics, Sedatives into Peripheral Vein, Percutaneous Approach (ICD-10-PCS; principal; 2023-01-18)
PROC: 3E0333Z Introduction of Anti-inflammatory into Peripheral Vein, Percutaneous Approach (ICD-10-PCS; 2023-01-18)
DX: M54.2 Cervicalgia (principal); M43.6 Torticollis
CPT/HCPCS: 36415; 70491-TC; 80048; 85025; 99285-25; Q9967

== ENCOUNTER 2023-06-09 13:13 | Observation (INO) | payer OTHER ==
[2023-06-09] MEDS ORDERED: ACETAMINOPHEN 1000 MG/100 ML BAG IVPB ONE (13:57)
[2023-06-09 15:47] LABS: BASO % 0.7 % (0-2.0); EOS % 2.2 % (0-4.5); HEMATOCRIT 38.1 % (32.4-45.2); HEMOGLOBIN 13.2 GM/dL (10.7-15.3); LYMPH % 30.8 % (8-40); MCH 32.4 pg (25.7-33.7); MCHC 34.7 g/dl (32.0-36.0); MEAN CELL VOLUME 93.4 fl (80-96); MEAN PLT VOLUME 8.5 fl (7.5-11.1); MONO % 8.9 % (3.8-10.2); NEUT % 57.4 % (42.8-82.8); PLATELET COUNT 243 10^3/uL (134-434); RBC 4.08 M/mm3 (3.60-5.2); RDW 13.2 % (11.6-15.6)
[2023-06-09 15:54] LABS: INR 1.02 (0.83-1.09); PROTHROMBIN TIME (PATIENT) 11.8 SEC (9.7-13.0)
[2023-06-09] MEDS ORDERED: ACETAMINOPHEN INJECTION 100 ML IVPB ONE (15:54)
[2023-06-09 15:57] LABS: ACTIVATED PTT 33.8 SECONDS (25.2-36.5)
[2023-06-09 16:09] LABS: POTASSIUM 3.9 mmol/L (3.5-5.1)
[2023-06-09 16:10] LABS: CALCIUM 9.1 mg/dL (8.5-10.1)
[2023-06-09 16:12] LABS: ALBUMIN 3.8 g/dl (3.4-5.0); BLOOD UREA NITROGEN 13.9 mg/dL (7-18)
[2023-06-09 16:14] LABS: CREATININE 1.1 mg/dL (0.55-1.3)
[2023-06-09 16:17] LABS: BILIRUBIN,TOTAL 0.4 mg/dL (0.2-1); TOT PROT 7.7 g/dl (6.4-8.2)
[2023-06-09 16:19] LABS: N-TERMINAL BNP 78.8 pg/ml (5-125)
[2023-06-09 20:22] VITALS: BMI 2549.4
[2023-06-09] MEDS: ATORVASTATIN CA 40 MG TABLET (FP) PO SCH (21:42)
[2023-06-09] MEDS: ASPIRIN COATED 81 MG TABLET.EC PO SCH (21:42)
[2023-06-10 07:59] LABS: POTASSIUM 4.4 mmol/L (3.5-5.1)
[2023-06-10 08:00] LABS: BLOOD UREA NITROGEN 14.1 mg/dL (7-18); CALCIUM 8.6 mg/dL (8.5-10.1)
[2023-06-10 08:03] LABS: CREATININE 0.8 mg/dL (0.55-1.3)
[2023-06-10 08:13] LABS: WHITE BLOOD COUNT 4.7 K/mm3 (4.0-10.0)
[2023-06-10 08:14] LABS: BASO % 0.5 % (0-2.0); EOS % 2.8 % (0-4.5); HEMATOCRIT 36.1 % (32.4-45.2); HEMOGLOBIN 12.5 GM/dL (10.7-15.3); LYMPH % 39.6 % (8-40); MCH 32.5 pg (25.7-33.7); MCHC 34.5 g/dl (32.0-36.0); MEAN CELL VOLUME 94.2 fl (80-96); MEAN PLT VOLUME 8.6 fl (7.5-11.1); MONO % 11.2 % (3.8-10.2); NEUT % 45.9 % (42.8-82.8); PLATELET COUNT 186 10^3/uL (134-434); RBC 3.83 M/mm3 (3.60-5.2)
[2023-06-10] MEDS: ASPIRIN COATED 81 MG TABLET.EC PO SCH (09:14)
[2023-06-10] MEDS: PANTOPRAZOLE 40 MG TABLET PO SCH (09:14)
[2023-06-10] MEDS ORDERED: LOSARTAN 50MG/HCTZ 12.5MG 1 TAB PO SCH (10:00)
[2023-06-10] MEDS: ACETAMINOPHEN 325 MG TABLET (FP) PO PRN ×2 (10:14→21:17)
[2023-06-10] MEDS: ATORVASTATIN CA 40 MG TABLET (FP) PO SCH (21:16)
[2023-06-11] MEDS: ENOXAPARIN NA (PORCINE) 40 MG/0.4 ML DISP.SYRIN SQ SCH (09:22)
[2023-06-11] MEDS: PANTOPRAZOLE 40 MG TABLET PO SCH (09:23)
[2023-06-11] MEDS: LOSARTAN 50MG/HCTZ 12.5MG 1 TAB PO SCH (09:23)
[2023-06-11] MEDS: ASPIRIN COATED 81 MG TABLET.EC PO SCH (09:23)
[2023-06-11] MEDS: ATORVASTATIN CA 40 MG TABLET (FP) PO SCH (21:50)
[2023-06-12 07:48] VITALS: RESP 18; TEMP 97.7
[2023-06-12 07:53] LABS: HEMATOCRIT 37.6 % (32.4-45.2); HEMOGLOBIN 13.1 GM/dL (10.7-15.3); MCH 32.3 pg (25.7-33.7); MCHC 34.8 g/dl (32.0-36.0); MEAN CELL VOLUME 92.8 fl (80-96); MEAN PLT VOLUME 8.6 fl (7.5-11.1); PLATELET COUNT 231 10^3/uL (134-434); RBC 4.05 M/mm3 (3.60-5.2); RDW 13.1 % (11.6-15.6); WHITE BLOOD COUNT 4.8 K/mm3 (4.0-10.0)
[2023-06-12 08:03] LABS: POTASSIUM 4.2 mmol/L (3.5-5.1)
[2023-06-12 08:05] LABS: CALCIUM 8.8 mg/dL (8.5-10.1)
[2023-06-12 08:06] LABS: BLOOD UREA NITROGEN 13.1 mg/dL (7-18); MAGNESIUM 1.8 mg/dL (1.8-2.4)
[2023-06-12 08:09] LABS: CREATININE 0.9 mg/dL (0.55-1.3)
[2023-06-12 08:10] LABS: PHOSPHOROUS 3.7 mg/dL (2.5-4.9)
[2023-06-12] MEDS ORDERED: REGADENOSON 0.4 MG/5 ML PRE-FILLED SYRINGE IVPUSH ONE ×2 (13:32→14:00)
[2023-06-12] MEDS: ASPIRIN COATED 81 MG TABLET.EC PO SCH (15:30)
[2023-06-12] MEDS: LOSARTAN 50MG/HCTZ 12.5MG 1 TAB PO SCH (15:30)
[2023-06-12] MEDS: PANTOPRAZOLE 40 MG TABLET PO SCH (15:30)
[2023-06-12] MEDS: ENOXAPARIN NA (PORCINE) 40 MG/0.4 ML DISP.SYRIN SQ SCH (15:44)
[2023-06-12 16:05] VITALS: BP 140/88; PULSE 73
== END 2023-06-12 18:27 | disposition home or self-care (01) ==
LOC: JER 13:13 → UNDOADMOB 19:00 → JERBED 19:00 → J4W 19:46 → JERBED 19:46 → OBSVTOIN 20:58 → INTOOBSV 20:58 → JERBED 06-12 09:17 → J4W 06-12 09:17
PROVIDERS: ADMIT Internal Medicine; ATTEND Internal Medicine
PROC: 3E033NZ Introduction of Analgesics, Hypnotics, Sedatives into Peripheral Vein, Percutaneous Approach (ICD-10-PCS; principal; 2023-06-12)
PROC: 3E033GC Introduction of Other Therapeutic Substance into Peripheral Vein, Percutaneous Approach (ICD-10-PCS; 2023-06-12)
DX: I25.10 Atherosclerotic heart disease of native coronary artery without angina pectoris (principal); R07.9 Chest pain, unspecified; M54.9 Dorsalgia, unspecified; M54.16 Radiculopathy, lumbar region; R06.02 Shortness of breath; I11.0 Hypertensive heart disease with heart failure; R91.1 Solitary pulmonary nodule; Z85.038 Personal history of other malignant neoplasm of large intestine; G47.30 Sleep apnea, unspecified; F41.9 Anxiety disorder, unspecified; E66.01 Morbid (severe) obesity due to excess calories
CPT/HCPCS: 36415; 71045-TC-FY; 78452-TC; 80048; 80053; 80061; 83036; 83735; 83880; 84100; 84439; 84443; 84484; 85025; 85027; 85379; 85610; 85730; 86850; 86900; 86901; 87635; 93005; 93010; 93017; 93306-TC; 96374; 96375; 99285-25; A9502; G0378; J2785

== ENCOUNTER 2023-07-22 23:21 | Emergency (ER) | payer OTHER ==
[2023-07-22 23:35] VITALS: BP 161/68; PULSE 65; RESP 18; TEMP 98.7; BMI 39.3
[2023-07-22] MEDS ORDERED: FAMOTIDINE 20 MG TABLET PO ONE (23:55)
[2023-07-22] MEDS ORDERED: MAG HYDROX/AL HYDROX/SIMETH 30 ML UNIT-DOSE CUP PO ONE (23:55)
[2023-07-22] MEDS ORDERED: ONDANSETRON *ODT* 4 MG TABLET SL ONE (23:57)
[2023-07-22] MEDS ORDERED: LIDOCAINE VISCOUS 2% ORAL/TOP 15 ML UNIT-DOSE CUP MM ONE (23:57)
[2023-07-23] MEDS ORDERED: FAMOTIDINE 20 MG TABLET ONE
[2023-07-23] MEDS ORDERED: ONDANSETRON *ODT* 4 MG TABLET ONE (00:01)
[2023-07-23] MEDS ORDERED: LIDOCAINE VISCOUS 2% ORAL/TOP 15 ML UNIT-DOSE CUP ONE (00:01)
[2023-07-23] MEDS ORDERED: MAG HYDROX/AL HYDROX/SIMETH 30 ML UNIT-DOSE CUP ONE (00:01)
[2023-07-23 01:50] LABS: BASO % 0.6 % (0-2.0); EOS % 1.1 % (0-4.5); HEMATOCRIT 36.5 % (32.4-45.2); HEMOGLOBIN 12.4 GM/dL (10.7-15.3); LYMPH % 21.3 % (8-40); MCH 32.1 pg (25.7-33.7); MCHC 34.1 g/dl (32.0-36.0); MEAN PLT VOLUME 8.3 fl (7.5-11.1); MONO % 7.8 % (3.8-10.2); NEUT % 69.2 % (42.8-82.8); PLATELET COUNT 246 10^3/uL (134-434); RBC 3.88 M/mm3 (3.60-5.2); RDW 12.7 % (11.6-15.6); WHITE BLOOD COUNT 6.8 K/mm3 (4.0-10.0)
[2023-07-23 02:23] LABS: POTASSIUM 4.1 mmol/L (3.5-5.1)
[2023-07-23 02:26] LABS: ALBUMIN 3.3 g/dl (3.4-5.0); BLOOD UREA NITROGEN 14.4 mg/dL (7-18)
[2023-07-23 02:30] LABS: TOT PROT 6.9 g/dl (6.4-8.2)
[2023-07-23 02:49] LABS: BILIRUBIN,TOTAL 0.3 mg/dL (0.2-1)
== END 2023-07-23 04:26 | disposition home or self-care (01) ==
LOC: JER 23:21
DX: K80.20 Calculus of gallbladder without cholecystitis without obstruction (principal); R10.13 Epigastric pain
CPT/HCPCS: 36415; 76705-TC; 80053; 83690; 84484; 85025; 93005; 93010; 99285-25; Q0162

== ENCOUNTER 2024-05-13 13:35 | Emergency (ER) | payer MEDICARE, OTHER ==
[2024-05-13 13:41] VITALS: RESP 20; TEMP 98; BMI 30.2
[2024-05-13] MEDS ORDERED: METOCLOPRAMIDE HCL INJECTION 10 MG/2 ML VIAL ONE (14:52)
[2024-05-13 14:59] LABS: BASO % 0.8 % (0-2.0); EOS % 2.6 % (0-4.5); HEMATOCRIT 36.2 % (32.4-45.2); HEMOGLOBIN 12.2 GM/dL (10.7-15.3); MCH 32.4 pg (25.7-33.7); MCHC 33.8 g/dl (32.0-36.0); MEAN PLT VOLUME 8.5 fl (7.5-11.1); MONO % 13.4 % (3.8-10.2); NEUT % 45.2 % (42.8-82.8); PLATELET COUNT 218 10^3/uL (134-434); RBC 3.77 M/mm3 (3.60-5.2); RDW 13.6 % (11.6-15.6); WHITE BLOOD COUNT 4.9 K/mm3 (4.0-10.0)
[2024-05-13] MEDS: METOCLOPRAMIDE HCL INJECTION 10 MG/2 ML VIAL IVPB ONE (15:00)
[2024-05-13] MEDS: SODIUM CHLORIDE 0.9% 500 ML INFUS.BAG IV ONE (15:00)
[2024-05-13 15:12] LABS: POTASSIUM 4.7 mmol/L (3.5-5.1)
[2024-05-13 15:15] LABS: ALBUMIN 3.3 g/dl (3.4-5.0); BLOOD UREA NITROGEN 11.9 mg/dL (7-18); CALCIUM 8.8 mg/dL (8.5-10.1)
[2024-05-13 15:18] LABS: CREATININE 0.9 mg/dL (0.55-1.3)
[2024-05-13 15:20] LABS: BILIRUBIN,TOTAL 0.6 mg/dL (0.2-1); TOT PROT 6.8 g/dl (6.4-8.2)
[2024-05-13 15:23] LABS: N-TERMINAL BNP 137.7 pg/ml (5-125)
[2024-05-13 16:38] VITALS: BP 143/81; PULSE 61
== END 2024-05-13 16:58 | disposition home or self-care (01) ==
LOC: JER 13:35
PROC: 3E033GC Introduction of Other Therapeutic Substance into Peripheral Vein, Percutaneous Approach (ICD-10-PCS; principal; 2024-05-13)
DX: R51.9 Headache, unspecified (principal); R00.2 Palpitations; F43.20 Adjustment disorder, unspecified; M54.2 Cervicalgia; M79.89 Other specified soft tissue disorders; R06.02 Shortness of breath; R07.9 Chest pain, unspecified; I10 Essential (primary) hypertension
CPT/HCPCS: 36415; 71046-TC-FY; 80053; 83880; 84484; 85025; 93005; 93010; 96374; 99285-25

== ENCOUNTER 2024-06-27 13:56 | Emergency (ER) | payer MEDICARE, OTHER ==
[2024-06-27 14:07] VITALS: TEMP 98.4; BMI 38.2
[2024-06-27 16:01] LABS: BASO % 1.5 % (0-2.0); EOS % 3.3 % (0-4.5); HEMOGLOBIN 12.5 GM/dL (10.7-15.3); MCH 32.1 pg (25.7-33.7); MCHC 33.7 g/dl (32.0-36.0); MEAN CELL VOLUME 95.3 fl (80-96); MEAN PLT VOLUME 8.6 fl (7.5-11.1); MONO % 13.3 % (3.8-10.2); NEUT % 45.9 % (42.8-82.8); PLATELET COUNT 234 10^3/uL (134-434); RBC 3.88 M/mm3 (3.60-5.2); RDW 13.1 % (11.6-15.6)
[2024-06-27 16:14] LABS: POTASSIUM 4.1 mmol/L (3.5-5.1)
[2024-06-27 16:16] LABS: ALBUMIN 3.5 g/dl (3.4-5.0); CALCIUM 9.1 mg/dL (8.5-10.1)
[2024-06-27 16:17] LABS: BLOOD UREA NITROGEN 16.4 mg/dL (7-18)
[2024-06-27 16:18] LABS: INR 0.98 (0.83-1.09); PROTHROMBIN TIME (PATIENT) 11.3 SEC (9.7-13.0)
[2024-06-27 16:20] LABS: CREATININE 0.9 mg/dL (0.55-1.3)
[2024-06-27 16:21] LABS: ACTIVATED PTT 33.1 SECONDS (25.2-36.5); BILIRUBIN,TOTAL 0.5 mg/dL (0.2-1); TOT PROT 6.9 g/dl (6.4-8.2)
[2024-06-27 17:23] LABS: HIV INTERPRETATION NEGATIVE (NEGATIVE)
[2024-06-27 17:31] VITALS: BP 147/88; PULSE 62; RESP 17
== END 2024-06-27 17:32 | disposition home or self-care (01) ==
LOC: JER 13:56
DX: R00.2 Palpitations (principal); M54.2 Cervicalgia; M54.9 Dorsalgia, unspecified; R03.0 Elevated blood-pressure reading, without diagnosis of hypertension
CPT/HCPCS: 36415; 71046-TC-FY; 80053; 84484; 85025; 85610; 85730; 86803; 87389; 93005; 93010; 99285-25

== ENCOUNTER 2025-03-04 08:18 | Emergency (ER) | payer MEDICARE ==
[2025-03-04 08:53] VITALS: TEMP 97.5; BMI 38.7
[2025-03-04 10:36] LABS: ABSOLUTE IMMATURE GRANULOCYTES 0.01 x10^3/uL (0.0-0.031); BASOPHILS # 0.03 x10^3/uL (0.01-0.08); EOSINOPHIL % 1.7 % (0.7-5.8); EOSINOPHILS # 0.08 x10^3/uL (0.04-0.36); MCHC 33.2 g/dl (32.2-35.5); MEAN CELL VOLUME 97.1 fl (79.4-94.8); MEAN PLT VOLUME 10.4 fl (9.4-12.3); MONOCYTE # 0.56 x10^3/uL (0.24-0.86); MONOCYTE % 11.9 % (4.7-12.5); RDW 12.5 % (12.4-16.4)
[2025-03-04 10:50] LABS: INR 1.0 (0.83-1.09); PROTHROMBIN TIME (PATIENT) 10.9 SEC (9.7-13.0)
[2025-03-04 10:52] LABS: ACTIVATED PTT 31.2 SECONDS (25.2-36.5)
[2025-03-04 11:00] LABS: CO2 28.0 mmol/L (21-32); GLUCOSE,RANDOM 90.0 mg/dL (74-106)
[2025-03-04 11:03] LABS: CREATININE 0.9 mg/dL (0.55-1.3); SGOT/AST 18.0 U/L (15-37); SGPT/ALT 21.0 U/L (13-61)
[2025-03-04 11:05] LABS: TOT PROT 6.7 g/dl (6.4-8.2)
[2025-03-04 11:06] LABS: ALK PHOS 76.0 U/L (45-117)
[2025-03-04] MEDS ORDERED: KETOROLAC TROMETHAMINE 30 MG/1 ML VIAL ONE (12:12)
[2025-03-04] MEDS: KETOROLAC TROMETHAMINE 30 MG/1 ML VIAL IM ONE (12:20)
[2025-03-04 15:12] VITALS: BP 130/63; PULSE 60; RESP 16
== END 2025-03-04 15:12 | disposition home or self-care (01) ==
LOC: JER 08:18
PROC: 3E0233Z Introduction of Anti-inflammatory into Muscle, Percutaneous Approach (ICD-10-PCS; principal; 2025-03-04)
DX: M25.572 Pain in left ankle and joints of left foot (principal); M25.472 Effusion, left ankle; R06.02 Shortness of breath
CPT/HCPCS: 36415; 71275-TC; 73610-TC-LT-FY; 73630-TC-LT; 80053; 83880; 84484; 85025; 85379; 85610; 85730; 87637-QW; 93005; 93010; 93971-TC; 99285-25